=== PATIENT | male | born 1970 | race Two or more races ===

== ENCOUNTER 2021-08-19 13:26 | Emergency (ER) | payer MEDICARE, MEDICAID, SELFPAY ==
--- NOTE | ~2021-08-19 | CT_ITS ---
EXAMINATION: CT ABDOMEN AND PELVIS WITHOUT CONTRAST CLINICAL INFORMATION: Right flank pain COMPARISON: CT abdomen and pelvis 05/04/2017 TECHNIQUE: Multidetector volumetric imaging was performed from the superior aspect of the liver through the pubic symphysis. Sagittal and coronal reformatted images were obtained on the technologist's workstation. This CT examination was performed using dose optimization techniques as appropriate, variously including the following: *Automated exposure control *Adjustment of mA and/or kV according to patient size (this includes techniques or standardized protocols for targeted exams where dose is matched to indication/reason for exam; i.e. extremities or head) *Use of iterative reconstruction technique DLP: 303 mGy-cm FINDINGS: . LUNG BASES: The visualized lung bases are unremarkable. LIVER, GALLBLADDER, AND BILIARY TREE: The liver is normal in size, shape, and attenuation. No focal hepatic lesion or biliary ductal dilatation is present. The gallbladder is unremarkable with no evidence of radiopaque gallstones, gallbladder wall thickening, or obvious pericholecystic inflammatory changes. PANCREAS: Unremarkable. SPLEEN: Unremarkable. ADRENAL GLANDS: There is a 9 mm nodule left adrenal gland. The right adrenal gland is unremarkable. KIDNEYS AND URETERS: The kidneys are normal in size, shape, and attenuation. There are bilateral nonobstructive radiopaque renal calculi the largest calculi lower pole right kidney measures 5 mm without caliectasis. There are is four 2-3 mm mm radiopaque calculi upper pole left kidney and largest 4 mm radiopaque calculi. There is mild right hydronephrosis secondary to small obstructive radiopaque calculi right distal ureter measuring 5 mm on axial image 65/3 and 3 mm right distal ureter axial image 63/3. There is a solitary phlebolith in the right pelvis, unchanged to previous study BLADDER: Unremarkable. GASTROINTESTINAL TRACT: There is scattered stool in the colon without distention. The small bowel loops are normal caliber. There is no free air or free fluid. ABDOMINAL WALL: No significant hernia is appreciated. LYMPH NODES: Normal. VASCULAR: Unremarkable. PELVIC VISCERA: Unremarkable. OSSEOUS STRUCTURES: No lytic or sclerotic process seen. CT/CT abdomen pelvis wo con IMPRESSION: Bilateral nephrolithiasis. There is a right gfde-si-eimhelcy hydronephrosis followed to obstructive calculi right distal ureter new since 2017. Mild constipation.
[2021-08-19 13:35] VITALS: BP 136/92; PULSE 91; RESP 19; TEMP 36; O2SAT 96; BMI 20.1
[2021-08-19 15:00] LABS: Appearance Urine CLEAR; Glucose Urine UA NEG (NEG); Leukocyte Esterase Urine NEG (NEG); Nitrite Urine NEG (NEG); PH 6.5 (5.0-8.0); UACC Culture Trigger NO; Urine Blood 3+ (NEG); Urine Ketones NEG (NEG); Urine Protein NEG (NEG-TRACE)
[2021-08-19 15:02] LABS: Color Urine OTHER
[2021-08-19 15:07] LABS: RBC Urine TNTC /HPF (0); WBC Urine 0 /HPF (0-4)
--- NOTE | 2021-08-19 17:52 | ED.ABDPAIN ---
HPI - Abdominal Pain General Chief Complaint: Abdominal Pain Stated Complaint: KIDNEY STONE PAIN Time Seen by Provider: 08/19/21 17:34 Source: patient Mode of arrival: ambulatory Limitations: no limitations History of Present Illness HPI narrative: Patient comes emergency room complaining of right-sided flank pain. Patient states his symptoms started this morning, pain was constant, radiating towards the groin. Also complaining of gross hematuria. Patient states he has had kidney stones in the past, has required 2 surgeries. Patient states that at this time, he does not have any pain, no nausea. Patient denies fever chills, patient on any blood thinners Related Data Home Medications Medication Instructions Recorded Confirmed clonazepam 0.5 mg tablet 0.5 mg PO BEDTIME PRN 08/10/21 08/10/21 bupropion HCl 150 mg 24 hr tablet, 1 tab PO QAM 08/19/21 extended release hydroxyzine HCl 25 mg tablet 1 tab PO BID 08/19/21 Previous Rx's Medication Instructions Recorded ibuprofen 600 mg tablet 600 mg PO Q6H PRN #20 tab 08/19/21 ondansetron HCl 4 mg tablet 4 mg PO Q6H PRN #10 tab 08/19/21 (Zofran) prednisone 20 mg tablet 20 mg PO DAILY #4 tab 08/19/21 tamsulosin 0.4 mg capsule (Flomax) 0.4 mg PO DAILY #10 cap 08/19/21 Allergies Allergy/AdvReac Type Severity Reaction Status Date / Time No Known Allergies Allergy Unverified 08/10/21 15:26 [No Known Allergies*] Review of Systems Review of Systems Constitutional : No Weight loss, No Fever, No Chills, No Night Sweats, No Fatigue, No Malaise ENT/Mouth : No Hearing loss, No Ear Pain, No Nasal Congestion, No Sinus Pain, No Hoarseness, No sore throat, No Rhinorrhea, No Swallowing Difficulty Eyes: No Eye Pain, No Swelling, No Redness, No Foreign Body, No Discharge, No Vision Changes Cardiovascular : No Chest Pain, No SOB, No Dyspnea on Exertion, No Orthopnea, No Edema, No Palpitations Respiratory : No Cough, No Sputum, No Wheezing, No Smoke Exposure, No Dyspnea Gastrointestinal : No Nausea, No Vomiting, No Diarrhea, No Constipation, No abdominal Pain, No Hematochezia, No Melena Genitourinary :No Dysuria, No Urinary Frequency, complaining of Hematuria, No Urinary Incontinence, No Urgency, complaining of right-sided Flank Pain which now resolved, No Urinary Flow Changes, No Hesitancy Musculoskeletal : No joint pain, No Myalgias, No Joint Swelling Skin : No Skin Lesions, No rash Neuro : No Weakness, No Numbness, No Paresthesias, No Loss of Consciousness, No Dizziness, No Headache Psych : No Anxiety/Panic, No Depression, No SI/HI/AH/VH, No Social Issues, Heme/Lymph: No Bruising, No Bleeding,No Lymphadenopathy Endocrine : No Polyuria, No Polydipsia, No Temperature Intolerance Physical Exam Vital Signs: Vital Signs: Last Vital Signs Temp 96.8 F 08/19/21 13:35 Pulse 91 08/19/21 13:35 Resp 19 08/19/21 13:35 BP 136/92 H 08/19/21 13:35 Pulse Ox 96 08/19/21 13:35 Body Mass Index 20.1 Const: Other: Appearance: Alert. Oriented X3. No acute distress. Eyes: Pupils equal, round and reactive to light. ENT: Pharynx normal. Neck: Normal inspection. Neck supple. No lymph nodes noted. No crepitus CVS: Normal heart rate and rhythm. Pulses normal. Normal S1 and S2 Respiratory: No respiratory distress. Breath sounds normal. No Wheezing. No rales Abdomen: Soft and nontender. No rigidity. No distention. good BS x4 Skin: Skin warm and dry. Normal skin color. Normal skin turgor. Extremities: No lower extremity edema. No Lacerations. No Rash Neuro: Oriented X 3. No motor deficit. No sensory deficit. Moving all extermities. No slurred speech. Course Course Course Narrative: I discussed the CT scan with the patient, patient has a 5 mm ureteral stone. Patient at this time is asymptomatic, patient will follow-up with urology. MDM - Abdominal Pain Lab Data Result diagrams: 08/19/21 18:29 08/19/21 18:29 Labs: Lab Results 08/19/21 08/19/21 08/19/21 Range/Units 14:40 18:29 18:29 WBC 4.6 L (4.8-10.8) X10*3/uL RBC 5.28 (4.60-5.80) X10*6/uL Hgb 14.7 (14.0-18.0) g/dl Hct 44.1 (42-52) % MCV 83.5 (80-98) fL MCH 27.8 (27.0-33.0) pg MCHC 33.3 (31.0-36.0) g/dl RDW 13.1 (11.0-16.0) % Plt Count 112 L (160-400) X10*3/uL MPV 10.9 (9.4-12.4) fL Immature Gran % (Auto) 0.2 (0.0-0.4) % Neut % (Auto) 76.0 H (45-73) % Lymph % (Auto) 16.3 L (20-40) % [place] % (Auto) 6.1 (2-11) % Eos % (Auto) 0.7 (0-4) % Baso % (Auto) 0.7 (0-2) % Lymph # (Auto) 0.8 L (1.2-4.9) X10*3/uL [place] # (Auto) 0.3 (0.1-1.2) X10*3/uL Eos # (Auto) 0.0 (0.0-0.4) X10*3/uL Baso # (Auto) 0.0 (0.0-0.2) X10*3/uL Abs Immat Gran (auto) 0.01 (0.00-0.03) X10*3/uL Absolute Neuts (auto) 3.5 (2.0-8.3) X10*3/uL Absolute Nucleated RBC 0.000 (0.0-0.012) X10*3/uL Nucleated RBC % (auto) 0.0 (0.0-0.2) /100WBC Smear Tech's Comments VERIFIED Sodium 140 (135-145) mmol/L Potassium 4.6 (3.3-5.1) mmol/L Chloride 103 (96-108) mmol/L Carbon Dioxide 29 (22-29) mmol/L Anion Gap 13 (12-20) BUN 10 (9-16) mg/dL Creatinine 0.96 (0.5-1.4) mg/dL Estim Creat Clear Calc 75.4 Estimated GFR > 60 Random Glucose 88 (60-115) mg/dL Calcium 9.6 (8.4-10.2) mg/dL Total Bilirubin 0.8 (0.0-1.0) mg/dL Direct Bilirubin 0.3 (0.0-0.5) mg/dL AST 20 (5-37) U/L ALT 20 (0-40) U/L Alkaline Phosphatase 69 (39-117) U/L Total Protein 7.3 (6.5-8.0) g/dL Albumin 4.5 (3.5-5.0) g/dL Urine Color OTHER Urine Appearance CLEAR Urine pH 6.5 (5.0-8.0) Ur Specific [place] 1.010 (1.005-1.025) Urine Protein NEG (NEG-TRACE) MG/DL Urine Glucose (UA) NEG (NEG) MG/DL Urine Ketones NEG (NEG) MG/DL Urine Blood 3+ H (NEG) Urine Nitrite NEG (NEG) Ur Leukocyte Esterase NEG (NEG) Urine RBC TNTC H (0) /HPF Urine WBC 0 (0-4) /HPF Ur Squamous Epith Cells NONE /LPF Urine Bacteria NONE /LPF Imaging Data CT scan - abdomen: Radiologist's impression: FINDINGS: . LUNG BASES: The visualized lung bases are unremarkable.? LIVER, GALLBLADDER, AND BILIARY TREE: The liver is normal in size, shape, and attenuation. No focal hepatic lesion or biliary ductal dilatation is present. The gallbladder is unremarkable with no evidence of radiopaque gallstones, gallbladder wall thickening, or obvious pericholecystic inflammatory changes.? PANCREAS: Unremarkable.? SPLEEN: Unremarkable.? ADRENAL GLANDS: There is a 9 mm nodule left adrenal gland. The right adrenal gland is unremarkable.? KIDNEYS AND URETERS: The kidneys are normal in size, shape, and attenuation. There are bilateral nonobstructive radiopaque renal calculi the largest calculi lower pole right kidney measures 5 mm without caliectasis. There are is four 2-3 mm mm radiopaque calculi upper pole left kidney and largest 4 mm radiopaque calculi.? There is mild right hydronephrosis secondary to small obstructive radiopaque calculi right distal ureter measuring 5 mm on axial image 65/3 and 3 mm right distal ureter axial image 63/3. There is a solitary phlebolith in the right pelvis, unchanged to previous study BLADDER: Unremarkable.? GASTROINTESTINAL TRACT: There is scattered stool in the colon without distention. The small bowel loops are normal caliber. There is no free air or free fluid.? ABDOMINAL WALL: No significant hernia is appreciated.? LYMPH NODES: Normal. VASCULAR: Unremarkable. PELVIC VISCERA: Unremarkable.? OSSEOUS STRUCTURES: No lytic or sclerotic process seen.? CT/CT abdomen pelvis wo con IMPRESSION: Bilateral nephrolithiasis. ? There is a right [id number] hydronephrosis followed to obstructive calculi right distal ureter new since 2017. ? Mild constipation.? Discharge Plan Discharge Clinical Impression: Ureterolithiasis Patient Disposition: Home, Self-Care Instructions: Kidney Stones (ED) Additional Instructions: Please follow-up with your primary care physician tomorrow. If you have any worsening or new symptoms, please return to the emergency room or call 911 Prescriptions: New tamsulosin [Flomax] 0.4 mg capsule 0.4 mg PO DAILY Qty: 10 RF: 0 ondansetron HCl [Zofran] 4 mg tablet 4 mg PO Q6H PRN (Reason: nausea and vomiting) Qty: 10 RF: 0 ibuprofen 600 mg tablet 600 mg PO Q6H PRN (Reason: pain) Qty: 20 RF: 0 prednisone 20 mg tablet 20 mg PO DAILY Qty: 4 RF: 0 No Action hydroxyzine HCl 25 mg tablet 1 tab PO BID RF: 0 bupropion HCl 150 mg tablet extended release 24 hr 1 tab PO QAM RF: 0 clonazepam 0.5 mg tablet 0.5 mg PO BEDTIME PRN (Reason: Insomnia) RF: 0 PMFSH Past Medical History Medical History Hepatitis C Surgical History History of colonoscopy History of extraction of renal calculus History of hernia repair Family History Family History Mother Diabetes Father No problems noted. Other Mental health disorder Social History Social History Housing: Apartment Alcohol intake: never Patient Tobacco Use Status: Former Tobacco user Advance Directives: No Advance Directives Information Provided: No service: No Current occupational status: disabled
[2021-08-19 18:43] LABS: Imm Gran Abs Auto 0.01 X10*3/uL (0.00-0.03); Imm Gran Pct Auto 0.2 % (0.0-0.4); MANUAL DIFF FLAG SCAN; PLT CLUMP 1; Red Cell Distribution Width 13.1 % (11.0-16.0); SCAN SMEAR FLAG 1
[2021-08-19 18:45] LABS: Basophils Percent Auto 0.7 % (0-2); Eosinophils Percent Auto 0.7 % (0-4); Hematocrit 44.1 % (42-52); Hemoglobin 14.7 g/dl (14.0-18.0); Lymphocytes Absolute Auto 0.8 X10*3/uL (1.2-4.9); Lymphocytes Percent Auto 16.3 % (20-40); Mean Corpuscular HGB Conc 33.3 g/dl (31.0-36.0); Mean Corpuscular Hemoglobin 27.8 pg (27.0-33.0); Mean Corpuscular Volume 83.5 fL (80-98); Mean Platelet Volume 10.9 fL (9.4-12.4); Monocytes Absolute Auto 0.3 X10*3/uL (0.1-1.2); Monocytes Percent Auto 6.1 % (2-11); Neutrophils Absolute Auto 3.5 X10*3/uL (2.0-8.3); Platelet Count 112 X10*3/uL (160-400); Red Blood Count 5.28 X10*6/uL (4.60-5.80); White Blood Count 4.6 X10*3/uL (4.8-10.8)
[2021-08-19 18:59] LABS: Alanine Aminotransferase 20 U/L (0-40); Albumin Level 4.5 g/dL (3.5-5.0); Alkaline Phosphatase 69 U/L (39-117); Anion Gap 13 (12-20); Aspartate Amino Transferase 20 U/L (5-37); Bilirubin Direct 0.3 mg/dL (0.0-0.5); Bilirubin Total 0.8 mg/dL (0.0-1.0); Blood Urea Nitrogen 10 mg/dL (9-16); Calcium 9.6 mg/dL (8.4-10.2); Carbon Dioxide 29 mmol/L (22-29); Chloride 103 mmol/L (96-108); Creatinine Clr Calc Pharmacy 75.4; Estimated Glomerular Filt Rate > 60; Glucose Random 88 mg/dL (60-115); Potassium 4.6 mmol/L (3.3-5.1); Sodium 140 mmol/L (135-145); Total Protein 7.3 g/dL (6.5-8.0)
[2021-08-19 19:01] LABS: SLIDE REVIEW VERIFIED
[2021-08-19] MEDS: predniSONE 20 MG TABLET PO (20:54)
[2021-08-19] MEDS: Tamsulosin HCL 0.4 MG CAPSULE PO (20:54)
== END 2021-08-19 21:00 | disposition home or self-care (01) ==
PROVIDERS: Emergency Provider Emergency Medicine; PCP Internal Medicine
DX: N20.1 Calculus of ureter (principal); Z79.899 Other long term (current) drug therapy
CPT/HCPCS: 36415; 74176; 80048; 80076; 81001; 81003; 85025; 99284

== ENCOUNTER 2021-09-01 11:56 | Outpatient (REF) | payer MEDICARE, MEDICAID, SELFPAY ==
[2021-09-01 12:57] LABS: Alanine Aminotransferase 14 U/L (0-40); Albumin Level 4.4 g/dL (3.5-5.0); Alkaline Phosphatase 69 U/L (39-117); Anion Gap 12 (12-20); Aspartate Amino Transferase 17 U/L (5-37); Bilirubin Total 0.8 mg/dL (0.0-1.0); Blood Urea Nitrogen 13 mg/dL (9-16); Calcium 9.2 mg/dL (8.4-10.2); Carbon Dioxide 29 mmol/L (22-29); Chloride 103 mmol/L (96-108); Cholesterol 181 mg/dL; Estimated Glomerular Filt Rate > 60; Glucose Fasting 83 mg/dL (60-99); HDL Cholesterol 37 mg/dL; LDL Cholesterol Calculated 122 mg/dl; Potassium 4.5 mmol/L (3.3-5.1); Sodium 139 mmol/L (135-145); Triglycerides 114 mg/dL
[2021-09-01 13:22] LABS: Prostate Specific Antigen 0.33 ng/mL (<0.05-4.0)
== END 2021-09-01 11:57 | disposition home or self-care (01) ==
LOC: HO.LAB 11:56
PROVIDERS: PCP Internal Medicine; Visit Provider Nurse Practitioner Family
DX: Z12.5 Encounter for screening for malignant neoplasm of prostate (principal); Z13.1 Encounter for screening for diabetes mellitus; Z13.220 Encounter for screening for lipoid disorders
CPT/HCPCS: 36415; 80053; 80061; 84153

== ENCOUNTER 2021-12-13 16:17 | Outpatient (REF) | payer MEDICARE, MEDICAID, SELFPAY ==
--- NOTE | ~2021-12-13 | US_ITS ---
EXAMINATION: US RETROPERITONEAL LIMITED (RENAL ONLY) CLINICAL INFORMATION: Calculus of kidney. COMPARISON: CT abdomen and pelvis without contrast 08/19/2021. Renal ultrasound 01/30/2020 and 11/18/2019. XR abdomen KUB 01/15/2020 and 05/03/2017. TECHNIQUE: Real-time imaging of the kidneys. FINDINGS: RIGHT KIDNEY: 10.5 x 5.1 x 4.3 cm (SAG x AP x TRV). The kidney is normal in size, contour, and echogenicity. Renal cortical thickness is normal. There is a 3 mm stone in the midpole. No focal parenchymal lesions or hydronephrosis. LEFT KIDNEY: 10.0 x 4.7 x 3.9 cm (SAG x AP x TRV). The kidney is normal in size, contour, and echogenicity. Renal cortical thickness is normal. There are multiple at least 5 left renal stones. The largest measure 5 mm in the mid and lower pole. No focal parenchymal lesions or hydronephrosis. US/US renal BI IMPRESSION: Bilateral renal stones, left greater than right.
== END 2021-12-13 16:18 | disposition home or self-care (01) ==
LOC: HO.US 16:17
PROVIDERS: PCP Internal Medicine; Visit Provider Internal Medicine
DX: N20.0 Calculus of kidney (principal)
CPT/HCPCS: 76775

== ENCOUNTER 2022-05-10 15:04 | Outpatient (REF) | payer MEDICARE, MEDICAID, SELFPAY ==
[2022-05-10 16:33] LABS: Calcium 9.1 mg/dL (8.4-10.2); Phosphorus 3.4 mg/dL (2.7-4.5); Uric Acid 6.1 mg/dL (3.4-7.0)
[2022-05-11 12:36] LABS: Calcium (PTHI) 9.6 mg/dL (8.6-10.3); PTHI 55 pg/mL (16-77)
== END 2022-05-10 15:05 | disposition home or self-care (01) ==
LOC: HO.LAB 15:04
PROVIDERS: PCP Internal Medicine; Visit Provider Urology
DX: N20.0 Calculus of kidney (principal); Z87.442 Personal history of urinary calculi
CPT/HCPCS: 36415; 82310; 83735; 83970; 84100; 84550; 99212

== ENCOUNTER → 2022-09-09 13:18 | Outpatient (BNVA) | payer MEDICARE, MEDICAID, SELFPAY | PROVIDERS: PCP Internal Medicine; Visit Provider Urology | DX: N20.0 Calculus of kidney (principal) | CPT/HCPCS: Q3014 ==

== ENCOUNTER 2023-01-02 10:58 | Outpatient (REF) | payer MEDICARE, MEDICAID, SELFPAY ==
[2023-01-02 11:09] LABS: MANUAL DIFF FLAG NO
[2023-01-02 12:07] LABS: Basophils Absolute Auto 0.1 X10*3/uL (0.0-0.2); Basophils Percent Auto 1.4 % (0-2); Eosinophils Absolute Auto 0.1 X10*3/uL (0.0-0.4); Eosinophils Percent Auto 1.8 % (0-4); Hematocrit 46.1 % (42.0-52.0); Hemoglobin 14.9 g/dl (14.0-18.0); Imm Gran Abs Auto 0.01 X10*3/uL (0.00-0.03); Imm Gran Pct Auto 0.2 % (0.0-0.4); Lymphocytes Absolute Auto 0.8 X10*3/uL (1.2-4.9); Lymphocytes Percent Auto 19.4 % (20-40); Mean Corpuscular HGB Conc 32.3 g/dl (31.0-36.0); Mean Corpuscular Hemoglobin 27.1 pg (27.0-33.0); Mean Platelet Volume 11.7 fL (9.4-12.4); Monocytes Absolute Auto 0.4 X10*3/uL (0.1-1.2); Neutrophils Percent Auto 68.2 % (45-73); Platelet Count 150 X10*3/uL (160-400); Red Blood Count 5.49 X10*6/uL (4.60-5.80); Red Cell Distribution Width 12.6 % (11.0-16.0); White Blood Count 4.3 X10*3/uL (4.8-10.8)
[2023-01-02 12:19] LABS: Appearance Urine Clear; Color Urine Yellow; Glucose Urine UA Negative (Negative); Leukocyte Esterase Urine Negative (Negative); Nitrite Urine Negative (Negative); PH 5.5 (5.0-9.0); Urine Blood Negative (Negative); Urine Ketones Negative (Negative); Urine Protein Negative (Neg-Trace)
[2023-01-02 12:47] LABS: Alanine Aminotransferase 15 U/L (0-40); Albumin Level 4.2 g/dL (3.5-5.0); Alkaline Phosphatase 65 U/L (39-117); Anion Gap 10 (12-20); Aspartate Amino Transferase 18 U/L (5-37); Bilirubin Total 1.1 mg/dL (0.0-1.0); Blood Urea Nitrogen 15 mg/dL (9-16); Calcium 9.2 mg/dL (8.4-10.2); Carbon Dioxide 30 mmol/L (22-29); Chloride 105 mmol/L (96-108); Cholesterol 161 mg/dL; Estimated Glomerular Filt Rate > 60; Glucose Fasting 80 mg/dL (60-99); HDL Cholesterol 36 mg/dL; LDL Cholesterol Calculated 110 mg/dl; Potassium 4.2 mmol/L (3.3-5.1); Sodium 141 mmol/L (135-145); Total Protein 6.7 g/dL (6.5-8.0); Triglycerides 79 mg/dL
[2023-01-02 13:03] LABS: Prostate Specific Antigen Scr 1.85 ng/mL (<0.05-4.0); TSH reflex Free T4 3.63 uIU/mL (0.32-4.0); Vitamin D 25-OH Total 31.8 ng/mL (>30)
== END 2023-01-02 10:59 | disposition home or self-care (01) ==
LOC: HO.LAB 10:58
PROVIDERS: PCP Internal Medicine; Visit Provider Internal Medicine
DX: Z00.00 Encounter for general adult medical examination without abnormal findings (principal); E55.9 Vitamin D deficiency, unspecified; R30.0 Dysuria; E78.00 Pure hypercholesterolemia, unspecified; Z12.5 Encounter for screening for malignant neoplasm of prostate
CPT/HCPCS: 36415; 80053; 80061; 81003; 82306; 84153; 84443; 85025

== ENCOUNTER 2023-02-07 15:16 | Outpatient (REF) | payer MEDICARE, MEDICAID, SELFPAY ==
[2023-02-07 17:05] LABS: Prothrombin Time 11.9 SEC (10.0-13.1)
[2023-02-08 04:53] LABS: Hepatitis A Antibody IgG REACTIVE (Nonreactive)
[2023-02-08 05:11] LABS: HBS Num1 1.89 mIU/mL (0-7.99); HBc Num1 6.82 S/CO (0.00-0.79); HBsAGNum1 0.34 S/CO (0.00-0.99); Hepatitis B Surface Antigen Negative (Negative); ~Hepatitis B Surface Antibody NONREACTIVE (Nonreactive)
[2023-02-08 05:59] LABS: HBc Num2 6.63 S/CO; HBc Num3 6.44 S/CO; Hepatitis B Core Antibody Reactive (Nonreactive)
[2023-02-09 17:18] LABS: Hepatitis B Core Antibody IgM NON-REACTIVE (NON-REACTIVE)
[2023-02-10 14:58] LABS: HCV Log PCR <1.18 NOT DETECTED Log IU/mL (NOT DETECTED); HepC Viral Load <15 NOT DETECTED IU/mL (NOT DETECTED)
== END 2023-02-07 15:17 | disposition home or self-care (01) ==
LOC: HO.LAB 15:16
PROVIDERS: PCP Internal Medicine; Referring Provider Internal Medicine; Visit Provider Internal Medicine
DX: Z01.818 Encounter for other preprocedural examination (principal); D69.6 Thrombocytopenia, unspecified; Z86.19 Personal history of other infectious and parasitic diseases; Z11.59 Encounter for screening for other viral diseases; Z72.89 Other problems related to lifestyle
CPT/HCPCS: 36415; 85610; 86704; 86705; 86706; 86708; 87340; 87522; 99202

== ENCOUNTER 2023-03-06 12:37 | Outpatient (REF) | payer MEDICARE, MEDICAID, SELFPAY ==
--- NOTE | ~2023-03-06 | US_ITS ---
EXAMINATION: US RETROPERITONEAL LIMITED (RENAL ONLY) CLINICAL INFORMATION: Calculus of kidney. COMPARISON: Bilateral renal ultrasound dated 12/13/2021. CT abdomen and pelvis without contrast dated 08/19/2021. Renals only ultrasound dated 01/30/2020. KUB dated 01/15/2020 and 05/03/2017. MR abdomen without and with contrast dated 09/04/2014. TECHNIQUE: Real-time imaging of the kidneys. FINDINGS: RIGHT KIDNEY: 10.4 x 5.7 x 4.8 cm (SAG x AP x TRV). The kidney is normal in size, contour, and echogenicity. Renal cortical thickness is normal. No focal parenchymal lesions or hydronephrosis. There is an echogenic stone lower pole measuring 0.5 x 0.6 x 0.6 cm with mild pelvic fullness. LEFT KIDNEY: 10.3 x 5.0 x 4.1 cm (SAG x AP x TRV). The kidney is normal in size, contour, and echogenicity. Renal cortical thickness is normal. No focal parenchymal lesions or hydronephrosis. There are echogenic stones in midpole measuring 0.4 x 0.4 x 0.3 cm and 0.3 x 0.4 x 0.4 cm. US/US renal BI IMPRESSION: Bilateral nonobstructive echogenic renal calculi. These are stable compared to previous ultrasound 12/13/2021. Mild pelvic fullness right kidney.
== END 2023-03-06 12:38 | disposition home or self-care (01) ==
LOC: HO.US 12:37
PROVIDERS: PCP Internal Medicine; Visit Provider Urology
DX: N20.0 Calculus of kidney (principal)
CPT/HCPCS: 76775

== ENCOUNTER → 2023-03-22 13:46 | Outpatient (BNVA) | payer MEDICARE, MEDICAID, SELFPAY | PROVIDERS: PCP Internal Medicine; Visit Provider Urology | DX: N20.0 Calculus of kidney (principal) | CPT/HCPCS: Q3014 ==

== ENCOUNTER 2023-03-23 09:14 | Outpatient (REF) | payer MEDICARE, MEDICAID, SELFPAY ==
--- NOTE | ~2023-03-23 | US_ITS ---
EXAMINATION: US COMPLETE ABDOMEN WITH LIVER ELASTOGRAPHY CLINICAL INFORMATION: Thrombocytopenia COMPARISON: None available. TECHNIQUE: Real-time imaging of the abdominal viscera. Noninvasive ultrasound liver fibrosis assessment is performed using Misael ElastPQ point quantification shear wave elastography (2D-SWE) with a C5-2 MHz transducer. Multiple elastography samples are obtained. FINDINGS: PANCREAS: Normal. The visualized pancreatic head and body are normal in appearance. The remainder of the pancreas is obscured from visualization by the overlying bowel gas. ABDOMINAL AORTA: The proximal, middle, and distal aortic segments are normal in caliber. INFERIOR VENA CAVA: Visualized portions are normal. LIVER: The liver demonstrates normal size, contour and echogenicity. No focal lesion or intrahepatic biliary duct dilatation. The right lobe measures 14.4 cm in length. The left lobe measures 8.5 cm in length. Portal flow is 8.5 hepatopedal Shear wave liver elastography median stiffness is 1.9 m/s (reference: normal median stiffness is 1.3 m/s or less). IQR/median stiffness to assess sampling precision is 0.15 (reference: good quality data set is IQR/median stiffness of 0.15 or less). GALLBLADDER: Gallbladder wall thickness is 0.2 cm The gallbladder is physiologically distended without evidence of stones, sludge, polyps, wall thickening or pericholecystic fluid. COMMON BILE DUCT: Normal in caliber measuring 0.3 cm in diameter. RIGHT KIDNEY: 9 shadowing linear area likely small calcification in midpole. Stone lower pole measuring 0.6 x 0.4 x 0.5 cm. No hydronephrosis. No renal calculi or focal parenchymal lesions. The kidney measures 9.7 cm in maximum dimension. LEFT KIDNEY: There are 3 echogenic stones. The largest in midpole measures 0.5 x 0.4 x 0.3 cm. No hydronephrosis. No renal calculi or focal parenchymal lesions. The kidney measures 10.0 cm in maximum dimension. SPLEEN: The spleen measures 13.2 cm in maximum dimension. FREE FLUID: None. US/US abdomen comp w elastography IMPRESSION: 1. Bilateral nonobstructive echogenic renal calculi. There is no hydronephrosis. 2. Liver elastography: Median liver stiffness measures 1.9 cm corresponding to cACLD suggestive. REFERENCE: Society of Radiologists in Ultrasound Liver Stiffness Thresholds (2019): LIVER STIFFNESS THRESHOLDS: *Liver Stiffness equal or less than 1.3 m/s: High probability of being normal. *Liver Stiffness less than 1.7 m/s: In the absence of other known clinical signs, rules out compensated advanced chronic liver disease. *Liver Stiffness 1.7-2.1 m/s: Suggestive of compensated advanced chronic liver disease but need further test for confirmation. *Liver Stiffness over 2.1 m/s: Rules in compensated advanced chronic liver disease. *Liver Stiffness over 2.4 m/s: Suggestive of clinically significant portal hypertension. QUALITY OF DATA SET: *IQR/Median value equal or less than 0.15 implies a quality data set. *IQR/Median value over 0.15 implies a poor quality data set. SIGNIFICANT CHANGE FROM PRIOR EXAM: Significant change if liver stiffness measurement is 10% or greater from prior exam. OTHER CONSIDERATIONS: The stage of liver fibrosis may be overestimated in the setting of acute hepatitis, liver inflammation, elevated liver function tests, hepatic vascular congestion, obstructive cholestasis, non-fasting state, and infiltrative diseases such as amyloidosis and lymphoma. In some patients with NAFLD, the liver stiffness thresholds for compensated advanced chronic liver disease may be lower. In causes other than viral hepatitis and NAFLD, liver stiffness thresholds are not well established.
== END 2023-03-23 09:15 | disposition home or self-care (01) ==
LOC: HO.US 09:14
PROVIDERS: PCP Internal Medicine; Visit Provider Internal Medicine
DX: D69.6 Thrombocytopenia, unspecified (principal); Z86.19 Personal history of other infectious and parasitic diseases
CPT/HCPCS: 76705; 76981

== ENCOUNTER 2023-04-27 13:18 | Day surgery (SDC) | payer MEDICARE, MEDICAID, SELFPAY ==
[2023-04-24 15:06] VITALS: BMI 19.6
--- NOTE | 2023-04-25 14:53 | HO.ANESPROP2 ---
Documented by User: Lor Simmons NP 04/25/23 14:54 HPI - Anesthesia Eval Consult details Narrative: 52yo M for Upper Endoscopy and Colonoscopy FOR[facility] Active Problems Active Problems: All Active Problems (Updated 02/07/23 @ 15:49 by Elizabeth Sosa MD) Thrombocytopenia (Acute) Colon cancer screening (Acute) Annual physical exam (Acute) Anxiety (Acute) History of gastritis (Acute) History of hepatitis C (Acute) Irritable bowel syndrome (IBS) (Acute) Renal calculi (Acute) Adult general medical exam (Acute) Screening for diabetes mellitus (Acute) Screening for hyperlipidemia (Acute) Screening for prostate cancer (Acute) Past Medical History Medical History (Updated 04/27/23 @ 14:12 by Brittni Hunt RN) Anxiety CVA (cerebral vascular accident) History of gastritis History of hepatitis C Irritable bowel syndrome (IBS) Family History Family History Mother Diabetes Father No problems noted. Other Mental health disorder Surgical History Surgical History History of colonoscopy History of extraction of renal calculus History of hernia repair Social History Social History Housing: Apartment Alcohol intake: former Patient Tobacco Use Status: Former Tobacco user Second Hand Smoke Exposure: Yes Use of substances other than those prescribed or required for medical reasons: Yes Substance Use Frequency: Occasionally Advance Directives: No Advance Directives Information Provided: Yes service: No Current occupational status: disabled Cognitive needs: No Hearing needs: No Vision needs: Yes (reading glasses) Meds Allergies Allergy/AdvReac Type Severity Reaction Status Date / Time No Known Allergies Allergy Verified 02/07/23 15:28 [No Known Allergies*] Home Medications Medication Instructions Recorded Confirmed Last Taken Type clonazepam 0.5 mg tablet 0.5 mg PO BEDTIME PRN Insomnia 08/10/21 03/22/23 Unknown History Exam Exam Date and Time: April 25, 2023 1453 Height,Weight and Vital Signs: Height 5 ft 6 in Weight 54.998 kg Pertinent Lab Results Pertinent Lab Results: Laboratory Tests 01/02/23 01/02/23 11:08 11:08 WBC 4.3 L Hgb 14.9 Hct 46.1 Plt Count 150 L Sodium 141 Potassium 4.2 Chloride 105 Carbon Dioxide 30 H BUN 15 Creatinine 1.07 Assessment and Plan Assessment Anesthesia Assessment: Chart Reviewed Documented by User: Gage Lieberman MD 04/27/23 14:40 [facility] Past Medical History Medical History (Updated 04/27/23 @ 14:12 by Brittni Hunt RN) Anxiety CVA (cerebral vascular accident) History of gastritis History of hepatitis C Irritable bowel syndrome (IBS) Family History Family History Mother Diabetes Father No problems noted. Other Mental health disorder Family history of problems with anesthesia: No Surgical History Surgical History History of colonoscopy History of extraction of renal calculus History of hernia repair History of Problems with Anesthesia: No Social History Social History Housing: Apartment Alcohol intake: former Patient Tobacco Use Status: Former Tobacco user Second Hand Smoke Exposure: Yes Use of substances other than those prescribed or required for medical reasons: Yes Substance Use Frequency: Occasionally Advance Directives: No Advance Directives Information Provided: Yes service: No Current occupational status: disabled Cognitive needs: No Hearing needs: No Vision needs: Yes (reading glasses) Meds Allergies Allergy/AdvReac Type Severity Reaction Status Date / Time No Known Allergies Allergy Verified 02/07/23 15:28 [No Known Allergies*] Home Medications Medication Instructions Recorded Confirmed Last Taken Type clonazepam 0.5 mg tablet 0.5 mg PO BEDTIME PRN Insomnia 08/10/21 03/22/23 Unknown History Exam Airway Mallampati Class: II TM Dist: >3cm Neck ROM: Full Partial: Upper and Lower Loose/Missing/Broken Teeth: Yes Assessment and Plan Assessment Anesthesia Assessment: Anesthesia Plan Discussed Final Anesthetic Review Family History of Problems with Anesthesia: No History of Problems with Anesthesia: No NPO: Yes ASA Class: III Final Preanesthetic Review: No Changes in Pt Med Stat, Meds/Allgs Chart Reviewed, Consent Obtained/Reviewed and Anes Risks/Benef Reviewed Patient Risk: Intermediate Procedure Risk: Low Anesthetic Plan Anesthetic Plan: MAC: Disposition: Standard PACU
[2023-04-27] MEDS: Lactated Ringers 1,000 ML 100 ML IVCONT (14:15)
[2023-04-27 14:16] VITALS: BP 127/79; PULSE 79; RESP 16; TEMP 36.3; O2SAT 99
--- NOTE | 2023-04-27 14:59 | PC.NURSE ---
Dr Sosa aware that current H+P is out of date and that section B of preop MD assessment is needed
--- NOTE | 2023-04-27 15:40 | MHC.SHP ---
Pre-Procedural Eval Section A Date of Service: 04/27/23 Section B Chief Complaint: Screening, chronic HCV r/o varices Details of Present Illness: PMH: Anxiety History of gastritis History of hepatitis C Irritable bowel syndrome (IBS) Present Medications: see Short Stay Collaborative assessment History of Previous Operations: No relevant previous surgery Allergies: Allergies Allergy/AdvReac Type Severity Reaction Status Date / Time No Known Allergies Allergy Verified 02/07/23 15:28 [No Known Allergies*] Review of Systems Review of Systems Comment: Ten point ROS negative Exam Exam Comment: Gen appear: No acute distress HEENT: no icterus Chest: No overt resp distress Abd: soft, nontender, nondistended Psych: Stable affect, answering questions appropriately Neuro: A/Ox3 noted to move all extremities spontaneously Ext: no peripheral edema Plan Diagnosis/Plan: Unchanged I have reviewed the history and physical and performed a pertinent physical examination on my patient. No changes have occurred unless specified. Time Spent With Patient Time: Total time managing care of this patient today ____ minutes.
--- NOTE | 2023-04-27 16:25 | P.OP_ITS ---
Operative Note Operative Note Date of Service: 04/27/23 Narrative: Procedure:?Esophagogastroduodenoscopy and colonoscopy Endoscopist:?Elizabeth Sosa MD Indication:?Variceal screening, CRC screening Anesthesia Provider:?Sonia Duckworth Anesthesia Type:?MAC Instrument:?Olympus GIF-H190, PCF-190L EGD Procedure:?? The procedure, indications, preparation and potential complications were reviewed with the patient, who indicated understanding and gave written informed consent to proceed. The endoscope was introduced through the mouth, and advanced to the second part of duodenum. The mucosa was carefully examined on slow withdrawal of the endoscope. The patient tolerated the procedure well. There were no immediate complications.? EGD Findings:? * Esophagus:? Normal mucosa noted in the entire esophagus. No varices were noted. The Z line was at 39 cm.? * Stomach:? Erythema and edema was noted in the antrum associated with a small healing ulcer. Cold forceps biopsies were taken from the edge of the healing ulcer. Random cold forceps biopsies were also taken to rule out H pylori. * Duodenum:? Normal mucosa was noted to the 2nd portion the duodenum. Colonoscopy Procedure:? The patient was then turned for the colonoscopy. A digital rectal exam was performed which was normal.? A distal attachment cap was affixed to the tip of the scope and the colonoscope was then inserted through the anus and advanced through the colon to the cecum at 75 cm, and terminal ileum.? Appendiceal orifice and ileocecal valve were identified.? Mucosa was carefully examined under high definition white light as the instrument was slowly withdrawn in a retrograde panoramic fashion. Retroflexion was performed in rectum. The procedure was not difficult. There were no immediate obvious complications. The quality of the prep was BBPS: 3+2+3 = adequate Withdrawal time 12 minutes. Limitations: No limitations Findings: Mucosa: Normal mucosa to cecum and terminal ileum. Protruding lesions: * Medium internal hemorrhoids without stigmata of recent bleeding. Impression: 1. Normal esophagus 2. Healing antral ulcer (biopsy) 3. Normal duodenum 4. Internal hemorrhoids Recommendations:?? * Follow biopsy results, office will call or send a letter within 7-10 days.? * Repeat colonoscopy in 10 years for asymptomatic colon cancer screening * Avoid NSAIDs and smoking.
[2023-04-27 16:39] VITALS: BP 108/63; PULSE 70; RESP 16; TEMP 36.1; O2SAT 100
[2023-04-27 16:54] VITALS: BP 128/98; PULSE 75; RESP 16; TEMP 36.7; O2SAT 98
== END 2023-04-27 16:57 | disposition home or self-care (01) ==
PROVIDERS: PCP Internal Medicine; Visit Provider Internal Medicine
PROC: (CPT 43239; principal; 2023-04-27 15:20)
DX: Z12.11 Encounter for screening for malignant neoplasm of colon (principal); K64.8 Other hemorrhoids; K25.9 Gastric ulcer, unspecified as acute or chronic, without hemorrhage or perforation; D69.6 Thrombocytopenia, unspecified; Z86.19 Personal history of other infectious and parasitic diseases
CPT/HCPCS: 43239; G0121; 88305; 88342; J2250; J3010

== ENCOUNTER 2023-05-08 13:01 | Outpatient (AMB) | payer MEDICARE, MEDICAID, SELFPAY ==
--- NOTE | 2023-05-08 13:03 | MHC.OFFVIS ---
Intake Vital Signs 05/08/23 13:06 Height 5 ft 6 in Weight 116 lb 13.52 oz BMI 18.9 BP 130/77 Blood Pressure Location Lt brachial Position Sitting Pulse 77 Intake Visit Reasons: S/p egd/colon Intake Note: Paolo is here for results of his procedures. CC: Loss of appetite. He eats because he has too. He will go all day without being hungry. 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 Pt currently has no gastrointestinal complaints to include abd pain, N,V,D or blood in stool. No fam hx of CRC. Last colo: 2017 (Dr Lord) diagnostic colo for diarrhea. Normal including random bx from T.I and colon. On lab review, pt noted to have thrombocytopenia. No known hx of cirrhosis. Last EGD 2017 did not show any portal hypertension. Pt does not report any relapse with substance use. 04/27/23: EGD/colo 1. Normal esophagus 2. Healing antral ulcer (biopsy) 3. Normal duodenum 4. Internal hemorrhoids Path: (A and B): Immunostains for H. pylori are negative with appropriate control. Diagnosis A.? Gastric antrum, biopsy:? Mild reactive gastropathy with ectatic vessels and focal minimal chronic inactive inflammation; negative for intestinal metaplasia and dysplasia (see comment).? B.? Stomach, random, biopsy:? Gastric antral and body mucosa with ectatic vessels and mild reactive changes; negative for intestinal metaplasia and dysplasia (see comment).? 05/08/23: Reports decreased appetite without obv weight loss, otherwise no gastrointestinal complaints. EGD and colo reviewed with the pt. No evidence of portal HTN on EGD which the pt was relieved to hear. [facility] Medical History Anxiety CVA (cerebral vascular accident) History of gastritis History of hepatitis C Irritable bowel syndrome (IBS) Surgical History History of colonoscopy History of esophagogastroduodenoscopy (EGD) History of extraction of renal calculus History of hernia repair Family History Mother Diabetes Father No problems noted. Other Mental health disorder Social History Housing: Apartment Alcohol intake: former Patient Tobacco Use Status: Former Tobacco user Second Hand Smoke Exposure: Yes service: No Current occupational status: disabled Cognitive needs: No Hearing needs: No Vision needs: Yes (reading glasses) Review of Systems Const All systems reviewed & are unremarkable except as noted in HPI and below Physical Exam Vital Signs: Last Vital Signs Pulse 77 05/08/23 13:06 BP 130/77 05/08/23 13:06 BMI result Body Mass Index 18.9 Gen appear: NAD, well nourished HEENT: no icterus, no cervical lymphadenopathy Chest: clear to auscultation CVS: Regular S1/S2 Abd: soft, nontender, nondistended Ext: no peripheral edema Neuro: A/Ox3, noted to move all extremities spontaneously Assessment & Plan Assessment & Plan (1) Colon cancer screening: Code(s): Z12.11 - Encounter for screening for malignant neoplasm of colon (2) History of hepatitis C: Comment: S/P Tx Code(s): Z86.19 - Personal history of other infectious and parasitic diseases (3) Thrombocytopenia: Code(s): D69.6 - Thrombocytopenia, unspecified (4) Liver fibrosis: Code(s): K74.00 - Hepatic fibrosis, unspecified Plan 1. Likely has advanced fibrosis vs early cirrhosis. No evidence of portal HTN on EGD 03/2023. Recommendations: - Repeat EGD in 3 years since HCV is treated and no other liver injury such as etOH or metabolic factors. Reminder set. - Repeat US in Aug 2023 for HCC screening. Reminder set. 2. CRC screening: No polyps on most recent colo. Repeat colonsocopy recommended in 2032 i.e 10 years. Follow up PRN. Coding Level of Care Code Est Pt Level 4 (48105) Diagnoses Colon cancer screening Z12.11 History of hepatitis C Z86.19 Thrombocytopenia D69.6 Liver fibrosis K74.00
[2023-05-08 13:06] VITALS: BP 130/77; PULSE 77; BMI 18.9
== END 2023-05-08 13:36 | disposition home or self-care (01) ==
PROVIDERS: PCP Internal Medicine; Visit Provider Internal Medicine
DX: Z12.11 Encounter for screening for malignant neoplasm of colon (principal); Z86.19 Personal history of other infectious and parasitic diseases; D69.6 Thrombocytopenia, unspecified; K74.00 Hepatic fibrosis, unspecified
CPT/HCPCS: 99214

== ENCOUNTER → 2023-05-08 13:01 | Outpatient (BNVA) | payer MEDICARE, MEDICAID, SELFPAY | PROVIDERS: PCP Internal Medicine; Visit Provider Internal Medicine | DX: Z12.11 Encounter for screening for malignant neoplasm of colon (principal); K74.00 Hepatic fibrosis, unspecified; D69.6 Thrombocytopenia, unspecified; Z86.19 Personal history of other infectious and parasitic diseases | CPT/HCPCS: 99212 ==

== ENCOUNTER 2023-10-05 08:19 | Outpatient (REF) | payer MEDICARE, MEDICAID, SELFPAY ==
--- NOTE | ~2023-10-05 | US_ITS ---
EXAMINATION: US ABDOMEN COMPLETE CLINICAL INFORMATION: Hepatic fibrosis, unspecified. COMPARISON: Ultrasound abdomen complete 03/23/2023. Renal ultrasound 03/06/2023. CT abdomen and pelvis 08/19/2021. X-ray KUB 01/15/2020 and 05/03/2017. TECHNIQUE: Real-time imaging of the abdominal viscera. FINDINGS: PANCREAS: Normal. ABDOMINAL AORTA: The proximal, mid, and distal segments are normal in caliber. INFERIOR VENA CAVA: Visualized portions are normal. LIVER: The liver is normal in size with suggestion of a nodular border and increased echogenicity. No focal hepatic lesion. There is no intrahepatic biliary duct dilatation seen. GALLBLADDER: Normal. The gallbladder is physiologically distended without evidence of stones, sludge, polyps, wall thickening or pericholecystic fluid. COMMON BILE DUCT: Normal in caliber measuring 0.27 cm in diameter. RIGHT KIDNEY: There is a mid renal 3 mm echogenic focus seen consistent with a nonobstructing calculus. No hydronephrosis or focal parenchymal lesions. The kidney measures 9.7 cm in maximum dimension. LEFT KIDNEY: There is a mid renal 7 mm echogenic focus consistent with a nonobstructing calculus as well as a 3 mm echogenic focus at the lower pole. No hydronephrosis or focal parenchymal lesions. The kidney measures 9.2 cm in maximum dimension. SPLEEN: The spleen is enlarged measuring 13.5 cm in maximum dimension. FREE FLUID: None. US/US abdomen complete IMPRESSION: 1. The liver has a nodular border and increased echogenicity suggesting the possibility of cirrhosis. 2. Splenomegaly. 3. Bilateral nonobstructing renal calculi.
== END 2023-10-05 08:20 | disposition home or self-care (01) ==
LOC: HO.US 08:19
PROVIDERS: Visit Provider Internal Medicine
DX: K74.00 Hepatic fibrosis, unspecified (principal)
CPT/HCPCS: 76700

== ENCOUNTER 2024-03-18 13:55 | Outpatient (REF) | payer MEDICARE, MEDICAID, SELFPAY ==
--- NOTE | ~2024-03-18 | US_ITS ---
EXAMINATION: US RETROPERITONEAL LIMITED (RENAL ONLY) CLINICAL INFORMATION: Calculus of kidney. COMPARISON: Ultrasound abdomen 10/05/2023 and 03/23/2023. CT abdomen and pelvis 08/19/2021. X-ray KUB 05/03/2017 and 12/18/2013. TECHNIQUE: Real-time imaging of the kidneys. FINDINGS: RIGHT KIDNEY: 9.5 x 5.0 x 4.3 cm (SAG x AP x TRV). The kidney is normal in size, contour, and echogenicity. Renal cortical thickness is normal. No focal parenchymal lesions or hydronephrosis. 0.5 x 0.3 x 0.5 cm nonobstructing calculus is seen in the mid kidney. LEFT KIDNEY: 10.0 x 4.7 x 3.4 cm (SAG x AP x TRV). The kidney is normal in size, contour, and echogenicity. Renal cortical thickness is normal. No calculi or focal parenchymal lesions. No hydronephrosis. ? 0.3 x 0.2 x 0.3 cm calcification versus nonobstructing stone in the lower pole. No twinkle artifact is identified. US/US renal BI IMPRESSION: 1. 0.5 cm nonobstructing calculus in the mid right kidney. 2. 0.3 cm calcification versus nonobstructing stone in the lower pole of the left kidney.
== END 2024-03-18 13:56 | disposition home or self-care (01) ==
LOC: HO.US 13:55
PROVIDERS: PCP Internal Medicine; Visit Provider Urology
DX: N20.0 Calculus of kidney (principal)
CPT/HCPCS: 76775

== ENCOUNTER 2024-04-12 13:51 | Outpatient (AMB) | payer MEDICARE, MEDICAID, SELFPAY ==
--- NOTE | 2024-04-12 14:08 | MHC.OFFVIS ---
Intake Visit Reasons: 1Y US(set) Intake Note: Patient is Present for Follow Up Ultrasound Urology Medication: Vitamin B6 Antibiotic Allergies: None Blood Thinners: None Allergies No Known Allergies [No Known Allergies*] Allergy (Verified 04/12/24 14:11) Medication List - Last Reconciled 04/12/24 by Donnie Green MD clonazepam 0.5 mg PO BEDTIME PRN omeprazole 40 mg PO DAILY 30 days pyridoxine (vitamin B6) 50 mg PO DAILY 90 days HPI Comments Details: Paolo is a pleasant male. He is a patient of Dr. Katz. He is seen for the following urologic conditions - nephrolithiasis Stable ultrasound Continue fluid intake vitamin-B Twelve month follow-up Nephrolithiasis Background of IBS with absorption issues Last presentation to emergency room 08/19 Imaging - 08/19 CT - 5mm distal right stone with hydronephrosis. 6mm right lower pole stone. Multiple small 3 mm stones left side. - 03/20 - Renal ultrasound with multiple small stones left side - 03/21 renal ultrasound stable 4 mm stones bilateral - 03/22 renal ultrasound bilateral stable 3 mm stones Investigations - 09/19 calcium 9.2, creatinine 1.1 24 hour urine 09/20 - shows good volume 1.8, adequate citrate, normal oxalate Interventions - ESWL multiple times PSA 01/19 1.8 PFSH Medical History CVA (cerebral vascular accident) History of gastritis History of hepatitis C Irritable bowel syndrome (IBS) Anxiety Surgical History History of esophagogastroduodenoscopy (EGD) History of colonoscopy History of hernia repair History of extraction of renal calculus Family History Mother Diabetes Father No problems noted. Other Mental health disorder Social History Housing: Apartment Alcohol intake: former Patient Tobacco Use Status: Former Tobacco user Second Hand Smoke Exposure: Yes service: No Current occupational status: disabled Cognitive needs: No Hearing needs: No Vision needs: Yes (reading glasses) Review of Systems Const Denies chills and Denies fever(s) Card Reports no additional complaints and Denies syncope Resp Denies cough GI Denies abdominal pain and Denies heartburn Reports as per HPI and Denies change in libido Neuro Denies syncope Psych Denies change in libido Endo Denies change in libido Physical Exam Const General: cooperative, healthy appearing, comfortable and no acute distress Orientation/consciousness: patient oriented x3 HEENT Face and sinus: Yes normal facial exam Mouth: moist mucous membranes Neck Neck: Yes normal visual inspection, Yes full ROM and Yes trachea midline Chest Chest palpation & inspection: normal inspection of the chest Resp Effort & Inspection: normal respiratory effort, able to speak in complete sentences and no respiratory distress GI Inspection: Yes normal to inspection Back/Spine/Pelvis Cervical Spine: normal cervical lordosis Thoracic/Lumbar Spine: thoracic and lumbar spine normal to inspection Skin General skin exam: no rashes or lesions noted Neuro General: patient oriented x3, gait normal, tone normal and moves all extremities Extrem General: Yes normal to inspection and Yes capillary refill normal Assessment & Plan Assessment & Plan (1) Renal calculi: Comment: (+) Hx of recurrent renal calculi/nephrolithiasis and S/P multiple ESWL in the past with Dr. Morley Code(s): N20.0 - Calculus of kidney Category: Medical Plan Twelve month follow-up Orders: Orders US renal BI 12 Months N20.0 - Calculus of kidney Medications: Refilled pyridoxine (vitamin B6) 50 mg PO DAILY 90 days 90 tabs 3RF N20.0 - Calculus of kidney Patient Instructions: Imaging studies, laboratory and physical exam results were discussed and reviewed in detail. No major barriers to patient understanding were identified. An opportunity to ask questions regarding the treatment plan was provided. All questions were answered. The patient expressed understanding and agreement with the above treatment plan. The patient is aware they should contact our office by phone for worsening of their current condition or the appearance of new urologic symptoms. Compliance is encouraged with any medications and followup testing that is ordered. It is a privilege to participate in the urologic care of your patient. If you have any questions or concerns regarding treatment for the above conditions, or other urologic issues, please do not hesitate to contact me. The office telephone contact is [phone]. This note is constructed using voice recognition software. While every effort has been made to ensure accuracy group tester errors may have been included. Yours sincerely, Dr Donnie Green MD, [facility] - Urology Providers of Expert, Compassionate Care for the Genitourinary System Coding Level of Care Code Est Pt Level 4 (76079) Diagnoses Renal calculi N20.0
== END 2024-04-12 15:12 | disposition home or self-care (01) ==
PROVIDERS: PCP Internal Medicine; Visit Provider Urology
DX: N20.0 Calculus of kidney (principal)
CPT/HCPCS: 99213

== ENCOUNTER → 2024-04-12 13:51 | Outpatient (BNVA) | payer MEDICARE, MEDICAID, SELFPAY | PROVIDERS: Visit Provider Urology | DX: N20.0 Calculus of kidney (principal) | CPT/HCPCS: 99212 ==

== ENCOUNTER 2024-04-16 07:36 | Outpatient (REF) | payer MEDICARE, MEDICAID, SELFPAY ==
--- NOTE | ~2024-04-16 | US_ITS ---
EXAMINATION: US ABDOMEN LIMITED CLINICAL INFORMATION: Hepatic fibrosis, unspecified. COMPARISON: Renal ultrasound 03/18/2024. Ultrasound abdomen complete 10/05/2023. CT abdomen and pelvis 08/19/2021. TECHNIQUE: Real-time imaging of the right upper quadrant abdominal viscera. FINDINGS: PANCREAS: Normal. LIVER: Liver is normal in size. Echotexture is coarsened consistent with chronic hepatocellular disease. No discrete mass. No ductal dilatation. GALLBLADDER: No cholelithiasis or evidence of acute cholecystitis. There may be adenomyomatosis in the gallbladder wall represented by crystal artifact. COMMON BILE DUCT: Normal in caliber measuring 0.3 cm in diameter. RIGHT KIDNEY: 8 mm nonobstructing calculus in the lower pole. No hydronephrosis or focal parenchymal lesions. The kidney measures 9.4 cm in maximum dimension. FREE FLUID: None. US/US abdomen limited IMPRESSION: Coarse hepatic parenchyma consistent with chronic hepatocellular disease. No visible liver mass. 8 mm nonobstructing calculus in the lower right kidney. No hydronephrosis.
== END 2024-04-16 07:37 | disposition home or self-care (01) ==
LOC: HO.US 07:36
PROVIDERS: PCP Internal Medicine; Visit Provider Internal Medicine
DX: K74.00 Hepatic fibrosis, unspecified (principal)
CPT/HCPCS: 76705

== ENCOUNTER 2024-06-07 14:23 | Outpatient (AMB) | payer MEDICARE, MEDICAID, SELFPAY ==
--- NOTE | 2024-06-07 14:29 | MHC.OFFVIS ---
Vital Signs 06/07/24 14:33 Height 5 ft 6 in Weight 123 lb 7.342 oz BMI 19.9 BP 116/57 L Blood Pressure Location Lt brachial Position Sitting Pulse 82 Intake Visit Reasons: f/u Cirrhosis and US Intake Note: Paolo presents in the office as as follow up for his US and cirrhosis. CC: States that he is here for results to US - no concerns at this time. Manager Consumer Required: No Allergies No Known Allergies [No Known Allergies*] Allergy (Verified 06/07/24 14:34) HPI Comments Details: This is a 52 y.o F with PMH of HCV s/p SVR (pt estimates 2017), etOH use disorder sober > 5 years, former smoker, who is here for follow up. Pt currently has no gastrointestinal complaints to include abd pain, N,V,D or blood in stool. No fam hx of CRC. Last colo: 2017 (Dr Lord) diagnostic colo for diarrhea. Normal including random bx from T.I and colon. On lab review, pt noted to have thrombocytopenia. No known hx of cirrhosis. Last EGD 2016 did not show any portal hypertension. Pt does not report any relapse with substance use. 04/27/23: EGD/colo 1. Normal esophagus 2. Healing antral ulcer (biopsy) 3. Normal duodenum 4. Internal hemorrhoids Path: (A and B): Immunostains for H. pylori are negative with appropriate control. Diagnosis A.? Gastric antrum, biopsy:? Mild reactive gastropathy with ectatic vessels and focal minimal chronic inactive inflammation; negative for intestinal metaplasia and dysplasia (see comment).? B.? Stomach, random, biopsy:? Gastric antral and body mucosa with ectatic vessels and mild reactive changes; negative for intestinal metaplasia and dysplasia (see comment).? 05/08/23: Reports decreased appetite without obv weight loss, otherwise no gastrointestinal complaints. EGD and colo reviewed with the pt. No evidence of portal HTN on EGD which the pt was relieved to hear. 06/07/24: Here for routine follow-up. No acute concerns at this time. Labs pending from last visit. States she would be able to go today. Had ultrasound abdomen 04/16/2024: Coarse hepatic parenchyma consistent with chronic hepatocellular disease. No visible liver mass. 8 mm nonobstructing calculus in the lower right kidney. No hydronephrosis PFSH Medical History CVA (cerebral vascular accident) History of gastritis History of hepatitis C Irritable bowel syndrome (IBS) Anxiety Surgical History History of esophagogastroduodenoscopy (EGD) History of colonoscopy History of hernia repair History of extraction of renal calculus Family History Mother Diabetes Father No problems noted. Other Mental health disorder Social History Housing: Apartment Alcohol intake: former Patient Tobacco Use Status: Former Tobacco user Second Hand Smoke Exposure: Yes service: No Current occupational status: disabled Cognitive needs: No Hearing needs: No Vision needs: Yes (reading glasses) Review of Systems Const All systems reviewed & are unremarkable except as noted in HPI and below Physical Exam Vital Signs: Last Vital Signs Pulse 82 06/07/24 14:33 BP 116/57 L 06/07/24 14:33 BMI result Body Mass Index 19.9 No apparent distress Nonicteric Abdomen soft, nondistended Alert and oriented x3, normal gait Assessment & Plan Assessment & Plan (1) Colon cancer screening: Code(s): Z12.11 - Encounter for screening for malignant neoplasm of colon Category: Medical (2) History of hepatitis C: Code(s): Z86.19 - Personal history of other infectious and parasitic diseases Category: Medical (3) Thrombocytopenia: Code(s): D69.6 - Thrombocytopenia, unspecified Category: Medical (4) Liver fibrosis: Code(s): K74.00 - Hepatic fibrosis, unspecified Category: Medical Plan 1. Likely has advanced fibrosis vs early cirrhosis. No evidence of portal HTN on EGD 03/2023. Recommendations: - Repeat EGD in 3 years since HCV is treated and no other liver injury such as etOH or metabolic factors. Reminder set. - Repeat US in Sep 2024 for HCC screening. Reminder set. Orders placed. 2. CRC screening: Repeat colonsocopy recommended in 2032 i.e 10 years. Follow up 1 y Orders: Orders Complete Blood Count no Diff 06/07/24 K74.00 - Hepatic fibrosis, unspecified Comprehensive Met. Panel 06/07/24 K74.00 - Hepatic fibrosis, unspecified Prothrombin Time INR 06/07/24 K74.00 - Hepatic fibrosis, unspecified US abdomen limited 10/07/24 K74.00 - Hepatic fibrosis, unspecified Coding Level of Care Code Est Pt Level 4 (87069) Diagnoses Colon cancer screening Z12.11 History of hepatitis C Z86.19 Thrombocytopenia D69.6 Liver fibrosis K74.00
[2024-06-07 14:33] VITALS: BP 116/57; PULSE 82; BMI 19.9
== END 2024-06-07 14:59 | disposition home or self-care (01) ==
PROVIDERS: PCP Internal Medicine; Visit Provider Internal Medicine
DX: K74.00 Hepatic fibrosis, unspecified (principal); Z86.19 Personal history of other infectious and parasitic diseases; D69.6 Thrombocytopenia, unspecified
CPT/HCPCS: 99214

== ENCOUNTER 2024-06-07 14:23 | Outpatient (REF) | payer MEDICARE, MEDICAID, SELFPAY ==
[2024-06-07 15:50] LABS: Hematocrit 46.3 % (42.0-52.0); Hemoglobin 15.1 g/dl (14.0-18.0); Mean Corpuscular HGB Conc 32.6 g/dl (31.0-36.0); Mean Corpuscular Hemoglobin 27.4 pg (27.0-33.0); Mean Corpuscular Volume 83.9 fL (80.0-98.0); Mean Platelet Volume 11.1 fL (9.4-12.4); Platelet Count 144 X10*3/uL (160-400); Red Blood Count 5.52 X10*6/uL (4.60-5.80); Red Cell Distribution Width 13.2 % (11.0-16.0); White Blood Count 4.1 X10*3/uL (4.8-10.8)
[2024-06-07 16:01] LABS: Prothrombin Time 12.3 SEC (11.1-13.3)
[2024-06-07 16:54] LABS: Alanine Aminotransferase 20 U/L (0-40); Albumin Level 4.6 g/dL (3.5-5.0); Alkaline Phosphatase 68 U/L (39-117); Anion Gap 11 (12-20); Aspartate Amino Transferase 18 U/L (5-37); Bilirubin Total 0.5 mg/dL (0.0-1.0); Blood Urea Nitrogen 11 mg/dL (9-16); Calcium 10.1 mg/dL (8.4-10.2); Carbon Dioxide 32 mmol/L (22-29); Chloride 105 mmol/L (96-108); Estimated Glomerular Filt Rate > 60; Glucose Random 73 mg/dL (60-115); Potassium 4.9 mmol/L (3.3-5.1); Sodium 143 mmol/L (135-145); Total Protein 7.4 g/dL (6.5-8.0)
== END 2024-06-07 14:24 | disposition home or self-care (01) ==
LOC: HO.LAB 14:23
PROVIDERS: PCP Internal Medicine; Visit Provider Internal Medicine
DX: K74.00 Hepatic fibrosis, unspecified (principal)
CPT/HCPCS: 36415; 80053; 85027; 85610; 99212

== ENCOUNTER 2024-09-23 07:50 | Outpatient (REF) | payer MEDICARE, SELFPAY | END 2024-09-23 07:51 | disposition home or self-care (01) | LOC: HO.US 07:50 | PROVIDERS: PCP Internal Medicine; Visit Provider Internal Medicine | DX: K74.00 Hepatic fibrosis, unspecified (principal) | CPT/HCPCS: 76705 ==

== ENCOUNTER 2025-03-25 14:45 | Outpatient (REF) | payer MEDICARE, MEDICAID, SELFPAY ==
--- NOTE | ~2025-03-25 | US_ITS ---
CLINICAL HISTORY: N20.0 - Calculus of kidney US Renal Comparison: None Findings: Right kidney normal echotexture, 9.6 cm length. Left kidney normal echotexture, 9.3 cm length. No hydronephrosis of either kidney. Normal color Doppler IMPRESSION: No hydronephrosis. No definite ultrasound evidence of renal stone. This document has been electronically signed by: Kathleen Rivera MD on 03/26/2025 13:10:36
== END 2025-03-25 14:46 | disposition home or self-care (01) ==
LOC: HO.US 14:45
PROVIDERS: PCP Internal Medicine; Visit Provider Urology
DX: N20.0 Calculus of kidney (principal)
CPT/HCPCS: 76775

== ENCOUNTER 2025-04-08 09:55 | Outpatient (REF) | payer MEDICARE, MEDICAID, SELFPAY ==
[2025-04-08 11:47] LABS: Prostate Specific Antigen 0.33 ng/mL (<0.05-4.0)
== END 2025-04-08 09:56 | disposition home or self-care (01) ==
LOC: HO.LAB 09:55
PROVIDERS: PCP Internal Medicine; Visit Provider Urology
DX: Z12.5 Encounter for screening for malignant neoplasm of prostate (principal)
CPT/HCPCS: 36415; 84153

== ENCOUNTER 2025-04-09 15:26 | Outpatient (AMB) | payer MEDICARE, MEDICAID, SELFPAY ==
--- NOTE | 2025-04-09 15:42 | MHC.OFFVIS ---
Intake Visit Reasons: 1y/US/PSA Intake Note: Patient is Present for 1y follow up/US/PSA Urology Medication: None Antibiotic Allergies: None Blood Thinners: None Allergies No Known Allergies [No Known Allergies*] Allergy (Verified 04/09/25 15:47) HPI Comments Details: Paolo is a pleasant male. He is a patient of Dr. Katz. He is seen for the following urologic conditions - nephrolithiasis Stable ultrasound Continue fluid intake vitamin-B Twelve month follow-up PSA low Continue fluid intake Nephrolithiasis Background of IBS with absorption issues Last presentation to emergency room 08/19 Imaging - 08/19 CT - 5mm distal right stone with hydronephrosis. 6mm right lower pole stone. Multiple small 3 mm stones left side. - 03/20 - Renal ultrasound with multiple small stones left side - 03/21 renal ultrasound stable 4 mm stones bilateral - 03/22 renal ultrasound bilateral stable 3 mm stones Investigations - 09/19 calcium 9.2, creatinine 1.1 24 hour urine 09/20 - shows good volume 1.8, adequate citrate, normal oxalate Interventions - ESWL multiple times PSA 01/19 1.8 PFSH Medical History CVA (cerebral vascular accident) History of gastritis History of hepatitis C Irritable bowel syndrome (IBS) Anxiety Surgical History History of esophagogastroduodenoscopy (EGD) History of colonoscopy History of hernia repair History of extraction of renal calculus Family History Mother Diabetes Father No problems noted. Other Mental health disorder Social History Housing: Apartment Alcohol intake: former Patient Tobacco Use Status: Former Tobacco user Second Hand Smoke Exposure: Yes service: No Current occupational status: disabled Cognitive needs: No Hearing needs: No Vision needs: Yes (reading glasses) Review of Systems Const Denies chills and Denies fever(s) Card Reports no additional complaints and Denies syncope Resp Denies cough GI Denies abdominal pain and Denies heartburn Reports as per HPI and Denies change in libido Neuro Denies syncope Psych Denies change in libido Endo Denies change in libido Physical Exam Const General: cooperative, healthy appearing, comfortable and no acute distress Orientation/consciousness: patient oriented x3 HEENT Face and sinus: Yes normal facial exam Mouth: moist mucous membranes Neck Neck: Yes normal visual inspection, Yes full ROM and Yes trachea midline Chest Chest palpation & inspection: normal inspection of the chest Resp Effort & Inspection: normal respiratory effort, able to speak in complete sentences and no respiratory distress GI Inspection: Yes normal to inspection Back/Spine/Pelvis Cervical Spine: normal cervical lordosis Thoracic/Lumbar Spine: thoracic and lumbar spine normal to inspection Skin General skin exam: no rashes or lesions noted Neuro General: patient oriented x3, gait normal, tone normal and moves all extremities Extrem General: Yes normal to inspection and Yes capillary refill normal Assessment & Plan Assessment & Plan (1) Renal calculi: Comment: (+) Hx of recurrent renal calculi/nephrolithiasis and S/P multiple ESWL in the past with Dr. Morley Code(s): N20.0 - Calculus of kidney Category: Medical Plan Twelve month follow-up PSA and renal ultrasound Orders: Orders Prostate Specific Antigen 04/08/25 Z12.5 - Encounter for screening for malignant neoplasm of prostate Patient Instructions: This note is constructed using voice recognition software. While every effort has been made to ensure accuracy radial arm saw operator errors may have been included. Imaging studies, laboratory and physical exam results were discussed and reviewed in detail. No major barriers to patient understanding were identified. An opportunity to ask questions regarding the treatment plan was provided. All questions were answered. The patient expressed understanding and agreement with the above treatment plan. The patient is aware they should contact our office by phone for worsening of their current condition or the appearance of new urologic symptoms. Compliance is encouraged with any medications and followup testing that is ordered. It is a privilege to participate in the urologic care of your patient. If you have any questions or concerns regarding treatment for the above conditions, or other urologic issues, please do not hesitate to contact me. The office telephone contact is [phone]. Sincerely, Dr Donnie Green MD, [facility] - Urology Compassionate Specialist Care for the Genitourinary System Coding Level of Care Code Est Pt Level 4 (12831) Diagnoses Renal calculi N20.0
== END 2025-04-09 16:02 | disposition home or self-care (01) ==
LOC: HO.HUSH 15:27
PROVIDERS: PCP Internal Medicine; Visit Provider Urology
DX: N20.0 Calculus of kidney (principal)
CPT/HCPCS: 99214

== ENCOUNTER → 2025-04-09 15:26 | Outpatient (BNVA) | payer MEDICARE, MEDICAID, SELFPAY | PROVIDERS: PCP Internal Medicine; Visit Provider Urology | DX: N20.0 Calculus of kidney (principal) | CPT/HCPCS: 99212 ==

== ENCOUNTER 2025-05-06 17:12 | Outpatient (AMB) | payer MEDICARE, MEDICAID, SELFPAY ==
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
[2025-05-06 17:17] VITALS: BP 118/78; PULSE 81; O2SAT 96; BMI 19.9
--- NOTE | 2025-05-06 17:17 | AM.OFFVISMDC ---
Intake Vital Signs 05/06/25 17:17 Height 5 ft 6 in Weight 123 lb 2 oz BMI 19.9 BP 118/78 Blood Pressure Location Rt brachial Position Sitting Pulse 81 Pulse Source Pulse Oximeter Pulse Oximetry (%) 96 Oxygen Delivery Method Room Air Intake Visit Reasons: AWV Dental Technician Metal Required: No Accompanied by: Self / Same As Patient Allergies No Known Allergies (No Known Allergies*) Allergy (Verified 05/06/25 17:26) Medication List - Last Reconciled 05/06/25 by Jeremy Katz MD clonazepam 0.5 mg PO BEDTIME PRN HPI AWV HPI Details Patient comes in today for his annual Medicare wellness exam and follow-up visit - he was last seen here over 2 years ago on 12/06/2022 Patient states that he currently feels okay and has had no significant issues over the past couple of years He continues to follow up with his psychiatrist on a regular basis and is currently only taking Lorazepam on an as-needed basis for his anxiety, which he feels has been well-controlled/managed lately He denies any headaches or dizziness Denies any chest pains, no shortness of breath No nausea/vomiting, no abdominal pain No change in bowel habits noted [place] of care was reviewed and updated today Patient does not have a healthcare proxy or MOLST form - he was provided with both and instructed to complete these as soon as possible IPPE/AWV: c/o of Annual Wellness Visit, subsequent visit. Medical / Social History Reviewed Past Medical History Yes . [place] of Care / Care Team list updated Yes . Surgical/Hospitalization History Yes . Current Medications (including OTC and supplements) Yes . Family History Yes . Tobacco Control form Yes . AUDIT-C (Alcohol use) form Yes . Illicit drug use in Social History Yes . Current diagnosis of depression? No Appropriate PHQ2/PHQ9 completed Yes . Data entered by Marker Maker and reviewed by provider Home Safety Throw rugs? No Grab bars? No Raised toilet seats? No Working smoke detectors? Yes Working carbon monoxide detectors? Yes Data entered by Marker Maker and reviewed by provider Activities of Daily Living (ADLs) Difficulty bathing or showering? No Difficulty dressing? No Difficulty using the toilet? No Difficulty getting in and out of bed? No Difficulty walking? No Receives help from another person with any of the above tasks? No Instrumental Activities of Daily Living (IADLs) Uses the telephone without help Gets to places out of walking distance without help Goes shopping for groceries without help Prepares own meals without help Does own minor home maintenance without help Does own laundry without help Does own housework without help Manages own money without help Currently takes medications? Yes Takes medication without help End-of-Life Planning Discussed advance directive Yes Advance directive not on file Discussed wishes expressed in advance directive agreed to following patient's wishes Fall Risk: Fall History Have you had any falls with injury in the past year? No . Have you had two or more falls in the past year? No . Fall Risk Assessment: No falls in the past year . HRA filled out by the patient, reviewed by Provider and scanned. [facility] Medical History (Updated 05/06/25 @ 17:30 by Jeremy Katz MD) CVA (cerebral vascular accident) History of gastritis History of hepatitis C Irritable bowel syndrome (IBS) Anxiety Surgical History (Updated 05/06/25 @ 17:30 by Jeremy Katz MD) History of esophagogastroduodenoscopy (EGD) History of colonoscopy History of hernia repair History of extraction of renal calculus Family History Mother Diabetes Father No problems noted. Other Mental health disorder Social History Housing: Apartment Alcohol intake: former Patient Tobacco Use Status: Former Tobacco user Second Hand Smoke Exposure: Yes Substance Use Type: Marijuana service: No Current occupational status: disabled Cognitive needs: No Hearing needs: No Vision needs: Yes (reading glasses) Questionnaire Medicare Wellness Checkup What [age] What gender do you identify with?: male During the past 4 weeks, how much have you been bothered by emotional problems such as feeling anxious, depressed, irritable, sad or downhearted, and blue?: not at all During the past 4 weeks, has your physical & emotional health limited your social activities with family, friends, neighbors, or groups?: not at all During the past 4 weeks, how much bodily pain have you generally had?: no pain During the past 4 weeks, was someone available to help you if you needed & wanted help?: no, not at all During the past 4 weeks, what was the hardest physical activity you could do for at least 2 minutes?: very light Can you get to places out of walking distance without help? (For eg., can you travel alone on buses, taxis or drive your car?): Yes Can you go shopping for groceries or clothes without someone's help?: Yes Can you prepare your own meals?: Yes Can you do your housework without help?: Yes Because of any health problems, do you need the help of another person with your personal care needs such as eating, bathing, dressing or getting around the house?: No Can you handle your own money without help?: Yes During the past 4 weeks, how would you rate your health in general?: fair During the past 4 weeks how have things been going for you?: very well; could hardly better Are you having difficulties driving your car?: no Do you always fasten your seat belt when you are in a car?: yes, usually During past 4 weeks, have you been bothered by the following: never: Falling or dizzy when standing up, Sexual problems?, Teeth or denture problems?, Problems using the telephone? and Tiredness or fatigue? and seldom: Trouble eating well? Have you fallen 2 or more times in the past year?: No Are you afraid of falling?: No Are you a smoker?: no During the past 4 weeks, how many drinks of wine, beer, or other alcoholic beverages did you have?: no alcohol at all Do you exercise for about 20 minutes 3 or more times a week?: no, I usually do not exercise this much Have you been given information to help with the following?: no: Hazards in your house that might hurt you? and no: Keeping track of your medications? How often do you have trouble taking medicines the way you have been told to take them?: I always take medicine as prescribed How confident are you that you can control & manage most of your health problems?: very confident What is your race?: or origin or descent Mini Mental State Exam (MMSE) Orientation What is the (year) (season) (date) (day) (month)?: year, season, date, day and month Where are we (state) (county) (town or city) (hospital) (floor)?: state, county, town or city, hospital/clinic and floor Score Score: 10 Activity of Daily Living Bathing - sponge bath, tub bath or shower: receives no assistance (gets in/out by self, if usual bathing means Dressing - getting clothes from closets & drawers, including inner/outer garments & fasteners.: gets clothes & gets completely dressed without help Toileting - going to the 'toilet room' for urine/bowel elimination & cleaning self/arranging clothes: goes to toilet room, cleans self, arranges clothes without help Transfer: moves in & out of bed and chair without help (may use support object) Continence: controls urination/bowel movements completely by self Feeding: feeds self without help Total Score: 0 Information obtained from: patient Using telephone: independent Traveling: independent Shopping: independent Preparing meals: independent Housework: independent Taking medicine: independent Managing money: independent PHQ-9 Over the last 2 weeks, how often have you been bothered by any of the following problems? 1. Little interest or pleasure in doing things: not at all 2. Feeling down, depressed, or hopeless: not at all 3. Trouble falling or staying asleep, or sleeping too much: not at all 4. Feeling tired or having little energy: not at all 5. Poor appetite or overeating: more than half the days 6. Feeling bad about yourself - or that you are a failure or have let yourself or your family down: not at all 7. Trouble concentrating on things, such as reading the newspaper or watching television: not at all 8. Moving or speaking so slowly that other people could have noticed. Or the opposite - being so fidgety or restless that you have been moving around a lot more than usual: not at all 9. Thoughts that you would be better off or of hurting yourself in some way: not at all Total score: 2 Depression Screening Interpretation: Negative Depression Screening Done: Yes 36826 - PHQ-9 Billing: Yes Source: Developed by Lilo LirianoW. Nima, Joel Weaver and colleagues, with an educational todd from [employer]. Review of Systems Const Denies chills, Denies fatigue, Denies fever(s) and Denies headache(s) ENT Denies dysphagia, Denies dizziness, Denies otalgia, Denies headache(s), Denies neck pain and Denies sore throat Card Denies chest pain, Denies rapid heart rate, Denies irregular heart rhythm, Denies palpitations and Denies dyspnea Resp Denies chest congestion, Denies cough and Denies dyspnea GI Denies abdominal pain, Denies constipation, Denies dysphagia, Denies heartburn, Denies diarrhea, Denies nausea and Denies vomiting Denies hematuria, Denies difficulty urinating, Denies dysuria and Denies urinary frequency Musc Denies back pain, Denies arthralgias and Denies neck pain Skin/Breast Denies lesions and Denies rash Neuro Denies dizziness, Denies headache(s) and Denies paresthesias Endo Denies fatigue and Denies palpitations Physical Exam Vital Signs: Last Vital Signs Pulse 81 05/06/25 17:17 BP 118/78 05/06/25 17:17 Pulse Ox 96 05/06/25 17:17 Oxygen Delivery Method Room Air 05/06/25 17:17 BMI result Body Mass Index 19.9 IPPE/AWV: Balance Romberg Yes . Tandem walk Yes . Walk and Turn Yes . Rise from sit to stand Yes . Vision Corrective lens No Vision screen pass Hearing Whisper test pass . Urinary incont. no. EKG Not clinically necessary. Const General: no acute distress and alert HEENT Ears: TM's normal bilaterally and EAC's normal Throat: Yes posterior oropharynx normal and Yes tonsils normal (no TP congestion) Neck Neck: Yes supple and No lymphadenopathy Thyroid: Thyroid normal Resp Auscultation: clear to auscultation bilaterally, no rales and no wheezes Cardio Rate: regular rate Rhythm: regular rhythm Heart sounds: no murmurs GI Palpation (GI): Soft to palpation and nontender Auscultation: normal bowel sounds General: Yes no CVA tenderness Back/Spine/Pelvis Back: no CVA tenderness Thoracic/Lumbar Spine: No lumbar spinal tenderness Skin Rashes: no rashes Extrem General: Yes no clubbing, cyanosis or edema Immunizations pneumoc 20-dino conj-dip cr(PF) 0.5 mL IM syringe Performing Provider: Jeremy Katz MD [facility] Administered by: FAIZA Desai on 05/06/25 18:05 Dose Route Admin Location Dispensed Lot Number Expiration Date [place] Bail Bond Agent 0.5 mL IM Left Deltoid 0.5 mL [id number] 04/29/26 5632-6972-82 [employer] Total Dispensed Waste 0.5 mL 0 % VIS Given Date VIS Provided VIS Publication Date 05/06/25 Single Vaccine 25 Eligibility Eligibility Date Funding Source Not VFC Eligible 05/06/25 Private Tenivac (PF) 5 Lf unit-2 Lf unit/0.5 mL intramuscular syringe Performing Provider: Jeremy Katz MD [facility] Administered by: FAIZA Desai on 05/06/25 18:05 Dose Route Admin Location Dispensed Lot Number Expiration Date [place] Bail Bond Agent 0.5 mL IM Right Deltoid 0.5 mL [id number] 12/28/26 19238-430-90 [employer] Total Dispensed Waste 0.5 mL 0 % VIS Given Date VIS Provided VIS Publication Date 05/06/25 Single Vaccine 21 Eligibility Eligibility Date Funding Source Not VFC Eligible 05/06/25 Private Assessment & Plan Assessment & Plan (1) Medicare annual wellness visit, subsequent: Code(s): Z00.00 - Encounter for general adult medical examination without abnormal findings Plan Follow up in 6 months Orders: Orders Complete Blood Count Auto Diff 05/06/25 D64.9 - Anemia, unspecified, Z00.00 - Encounter for general adult medical examination without abnormal findings TSH reflex Free T4 05/06/25 E78.00 - Pure hypercholesterolemia, unspecified, Z00.00 - Encounter for general adult medical examination without abnormal findings Pneumococcal 20 Immunization 05/06/25 Z23 - Encounter for immunization Comprehensive [place]. Panel Fast 05/06/25 E78.00 - Pure hypercholesterolemia, unspecified, Z00.00 - Encounter for general adult medical examination without abnormal findings Lipid Panel 05/06/25 E78.00 - Pure hypercholesterolemia, unspecified, Z00.00 - Encounter for general adult medical examination without abnormal findings UA CC w/rflx Micro + Cult 05/06/25 R30.0 - Dysuria, Z00.00 - Encounter for general adult medical examination without abnormal findings Vitamin D 25-OH Total 05/06/25 E55.9 - Vitamin D deficiency, unspecified, Z00.00 - Encounter for general adult medical examination without abnormal findings Prostate Specific Antigen Scr 05/06/25 Z00.00 - Encounter for general adult medical examination without abnormal findings Td Immunization 05/06/25 Z23 - Encounter for immunization Quality Reporting (2019) Depression/Bipolar (159/160/161/177) PHQ-9: Total score: 2 Coding Level of Care Code Medicare Subsequent (G0439) Diagnoses Medicare annual wellness visit, subsequent Z00.00 Additional Codes PHQ-9 - 93324 - PHQ-9 Billing: Yes ([id number])
== END 2025-05-06 17:48 | disposition home or self-care (01) ==
LOC: HO.HMCH 17:12
PROVIDERS: PCP Internal Medicine; Visit Provider Internal Medicine
DX: Z23 Encounter for immunization (principal)

== ENCOUNTER → 2025-05-06 17:12 | Outpatient (BNVA) | payer MEDICARE, MEDICAID, SELFPAY | PROVIDERS: PCP Internal Medicine; Visit Provider Internal Medicine | DX: Z00.00 Encounter for general adult medical examination without abnormal findings (principal); Z23 Encounter for immunization; N20.0 Calculus of kidney; K58.9 Irritable bowel syndrome, unspecified; F41.9 Anxiety disorder, unspecified; Z87.19 Personal history of other diseases of the digestive system; Z86.19 Personal history of other infectious and parasitic diseases | CPT/HCPCS: 90471; 90677; 90714; 96127 ==

== ENCOUNTER 2025-06-02 08:29 | Outpatient (REF) | payer MEDICARE, MEDICAID, SELFPAY ==
[2025-06-02 08:48] LABS: MANUAL DIFF FLAG NO
--- OUTSIDE RECORDS SUMMARY | 2025-06-02 08:52 | XMS_ITS | Patient Health Record ---
Author Organization [facility] Address [address] [place] [address] Care Team Providers Care Clinical Reimbursement Specialist Name Role Phone Brisa Katz MDh Primary Care Provider Willy Edwards Unavailable [phone] Reason For Referral No Information Medications Medication SIG (Take, Route, Fr equency, Duration) Notes Start Date End Date Status Pantothenic Acid Act solange Problems Problem Type SNOMED Code ICD Code Onset Dates Problem Status W/U Status Risk Notes Problem [id number] Chronic hepatitis C without hepatic coma (B18.2) Active confirmed Problem 793294977 Elevated liver enzymes (R74.8) Active confirmed Problem 920238610 Elevated alpha-fetoprote in (R77.2) Active confirmed Plan Of Treatment Pending Test Test Name Order Date BUN 02/13/2013 BUN 08/31/2014 CREATININE 02/13/2013 CREATININE 08/31/2014 LIVER PROFILE 04/27/2015 LIVER PROFILE 01/01/2014 LIVER PROFILE 07/09/2016 LIVER PROFILE 01/03/2015 LIVER PROFILE 09/06/2015 LIVER PROFILE 08/06/2014 LIVER PROFILE 06/07/2016 CBC w DIFF 08/06/2014 CBC w DIFF [...] OF [place] [address] [place] [address] [id number] AUREA SPENCE Self - patient is the insured MEDICAID OF [employer] [address] [place] [phone] [id number] AUREA SPENCE Self - patient is the [...] injury with some left-sided weaknes s Denies [place],DM,CVA,Lung disease,renal dise ase Liver biopsy in 10/2012 [...]
[2025-06-02 09:17] LABS: Hematocrit 43.1 % (42.0-52.0); Hemoglobin 14.1 g/dl (14.0-18.0); Imm Gran Abs Auto 0.00 X10*3/uL (0.00-0.03); Imm Gran Pct Auto 0.0 % (0.0-0.4); Lymphocytes Absolute Auto 0.7 X10*3/uL (1.2-4.9); Mean Corpuscular HGB Conc 32.7 g/dl (31.0-36.0); Mean Corpuscular Hemoglobin 27.2 pg (27.0-33.0); Mean Corpuscular Volume 83.0 fL (80.0-98.0); NRBC Abs Auto 0.000 X10*3/uL (0.0-0.012); NRBC Pct Auto 0.0 /100WBC (0.0-0.2); Platelet Count 114 X10*3/uL (160-400); Red Blood Count 5.19 X10*6/uL (4.60-5.80); White Blood Count 3.4 X10*3/uL (4.8-10.8)
[2025-06-02 09:20] LABS: Appearance Urine Clear; Glucose Urine UA Negative (Negative); PH 6.0 (5.0-9.0); Specific Gravity - Urine 1.010 (1.005-1.025); UMIC TRIGGER UACC YES
[2025-06-02 09:58] LABS: Alanine Aminotransferase 19 U/L (0-40); Albumin Level 4.4 g/dL (3.5-5.0); Alkaline Phosphatase 66 U/L (39-117); Anion Gap 11 (12-20); Aspartate Amino Transferase 26 U/L (5-37); Blood Urea Nitrogen 14 mg/dL (9-16); Calcium 8.9 mg/dL (8.4-10.2); Carbon Dioxide 29 mmol/L (22-29); Chloride 106 mmol/L (96-108); Cholesterol 190 mg/dL (<200); Estimated Glomerular Filt Rate > 60; HDL Cholesterol 39 mg/dL (>40); Potassium 4.6 mmol/L (3.3-5.1); Sodium 141 mmol/L (135-145); Total Protein 6.9 g/dL (6.5-8.0); Triglycerides 100 mg/dL (<150)
== END 2025-06-02 08:30 | disposition home or self-care (01) ==
LOC: HO.LAB 08:29
PROVIDERS: PCP Internal Medicine; Visit Provider Internal Medicine
DX: Z00.00 Encounter for general adult medical examination without abnormal findings (principal); E78.00 Pure hypercholesterolemia, unspecified; D64.9 Anemia, unspecified; E55.9 Vitamin D deficiency, unspecified; Z12.5 Encounter for screening for malignant neoplasm of prostate
CPT/HCPCS: 36415; 80053; 80061; 81001; 82306; 84153; 84443; 85025

== ENCOUNTER 2025-06-05 12:40 | Emergency (ER) | payer MEDICARE, MEDICAID, SELFPAY ==
--- NOTE | ~2025-06-05 | XR_ITS ---
CLINICAL HISTORY: r flank pain 1 view abdomen Comparison: Renal ultrasound from 03/25/2025 Findings: No consolidation of the partially imaged lung bases. No defined small-bowel dilatation. Mild-moderate stool burden with nonspecific bowel-gas pattern. No well-defined or large calcification of the region of the right kidney. 3 mm calcification in the left upper quadrant may be in the left kidney or related to ingested material. Degenerative changes include the partially imaged hips. IMPRESSION: No small bowel obstruction. No x-ray correlate for right renal echogenicity on the comparison ultrasound. Please consider CT, if clinically indicated. This document has been electronically signed by: Usama Chaidez MD on 06/05/2025 19:10:53
--- NOTE | ~2025-06-05 | US_ITS ---
EXAMINATION: US RETROPERITONEAL LIMITED, RIGHT (RENAL ONLY) CLINICAL INFORMATION: Flank pain, history of stones. COMPARISON: 03/25/2025. TECHNIQUE: Real-time imaging of the right kidney. FINDINGS: RIGHT KIDNEY: 12.0 x 5.9 x 5.5 cm (SAG x AP x TRV). The kidney is normal in size, contour, and echogenicity. Renal cortical thickness is normal. No calculi or focal parenchymal lesions. There is moderate hydronephrosis, and proximal hydroureter. Cannot identify an obstructing abnormality, although the distal ureter is not well seen. US/US renal RT IMPRESSION: Moderate right hydronephrosis and proximal hydroureter. Suspect a more distal ureteral obstruction. Electronically signed by: Champ Rivas MD 06/05/2025 01:51 PM EDT
--- NOTE | 2025-06-05 13:11 | ED.GENADULT ---
HPI - General Adult General Chief complaint: Abdominal Pain Stated complaint: abd pain quest kidney stone Time Seen by Provider: 06/05/25 17:22 History of Present Illness ED Provider: Pedro Kennedy MD HPI narrative: 54-year-old male with history of ureteral colic chronic. Chronic recurrent kidney stones denies any prior stenting no fever or chills. Right flank pain radiating to the scrotum consistent with his previous episodes. No trauma. No scrotal changes or swelling. Related Data Home Medications ?Medication ?Instructions ?Recorded ?Confirmed clonazepam 0.5 mg tablet 0.5 mg PO BEDTIME PRN Insomnia 08/10/21 05/06/25 Previous Rx's ?Medication ?Instructions ?Recorded ibuprofen 600 mg tablet 600 mg PO Q8H PRN pain 5 days #15 06/05/25 tabs morphine 15 mg immediate release 15 mg PO Q8H PRN pain #7 tabs 06/05/25 tablet tamsulosin 0.4 mg capsule (Flomax) 0.4 mg PO DAILY #7 caps 06/05/25 Allergies Allergy/AdvReac Type Severity Reaction Status Date / Time No Known Allergies (No Known Allergy Verified 06/05/25 13:14 Allergies*) FOR[facility]LY [facility] Past Medical History Medical History (Updated 06/05/25 @ 19:56 by Pedro Kennedy MD) CVA (cerebral vascular accident) History of gastritis History of hepatitis C Irritable bowel syndrome (IBS) Anxiety Surgical History (Updated 05/06/25 @ 17:30 by Jeremy Katz MD) History of esophagogastroduodenoscopy (EGD) History of colonoscopy History of hernia repair History of extraction of renal calculus Family History Family History Mother Diabetes Father No problems noted. Other Mental health disorder Social History Social History Housing: Apartment Alcohol intake: former Patient Tobacco Use Status: Former Tobacco user Smoked in Last 30 Days: No Second Hand Smoke Exposure: Yes Substance Use Type: Marijuana Advance Directives: No Advance Directives Information Provided: No Do you have a plan to hurt others: No Plan service: No Current occupational status: disabled Cognitive needs: No Hearing needs: No Vision needs: Yes (reading glasses) Physical Exam ED Exam Exam: EXAM: Gen: Alert, awake uncomfortable appearing in pain Head: Atraumatic Eyes: Anicteric, Normal conjunctiva. ENT: Moist mucosa, no pallor. ? Neck: Supple. Skin: ?No observable rash or bruising on exposed or examined skin Respiratory: Breathing comfortably, No distress.Clear to auscultation bilaterally, symmetric chest expansion, No wheeze, rales, ronchi. Cardiovascular: Regular rate and rhythm. No murmurs or rub. Well perfused periphery, warm extremities. No edema. ? Abdominal: No focal tenderness. Soft, no objective distension. No palpable masses or obvious organomegaly. ?No guarding, no rebound tenderness or other peritoneal findings. : Moderate right flank tenderness Neuro: Alert. Gross movement of all extremities intact. ? Psych: Calm. Cooperative. MSK: No grossly visible deformity. Vital signs: See flowsheet Vital Signs: Vital Signs - 24 hr 06/05/25 13:12 06/05/25 18:56 06/05/25 20:07 Temperature 97.2 F 97.5 F 97.5 F Pulse Rate 73 83 83 Respiratory Rate 18 16 16 Blood Pressure 184/88 H 139/82 139/82 Pulse Oximetry 98 99 99 Oxygen Delivery Method Room Air Room Air Room Air BMI result Body Mass Index 20.1 Course Course Course Narrative: This is a rapid medical exam performed by Isra Spear NP: Additional HPI, ROS, PE not included below will be deferred to primary provider. Patient is a 54-year-old male with history of liver fibrosis, renal calculi, hx of Hep C, IBS, thrombocytopenia presenting to the ED with complaint of right flank pain for the past week. States feels similar episodes of kidney stones. Nausea and vomiting. Episode of hematuria on Sat. Plan; labs, UA, renal u/s Medications Administered Discontinued Medications Generic Name Dose Route Start Last Admin Trade Name Freq PRN Reason Stop Dose Admin Sodium Chloride 1,000 mls @ 999 mls/hr 06/05/25 18:45 06/05/25 18:59 Ns IV 06/05/25 19:45 999 mls/hr .Q1H1M ROCHELLE Administration Ketorolac Tromethamine 10 mg 06/05/25 18:31 06/05/25 19:00 Ketorolac Tromethamine 15 Mg/Ml Vial IVPUSH 06/05/25 18:32 10 mg ONCE ONE Administration Morphine Sulfate 2 mg 06/05/25 18:31 06/05/25 19:00 Morphine Sulfate 2 Mg/Ml Cartridge IVPUSH 06/05/25 18:32 2 mg ONCE ONE Administration Protocol Tamsulosin HCl 0.4 mg 06/05/25 18:35 06/05/25 19:00 Tamsulosin Hcl 0.4 Mg Capsule PO 06/05/25 18:36 0.4 mg ONCE ONE Administration Medical Decision Making Medical Decision Making MDM Narrative: Medical Decision Making: [age] male with recurrent right flank pain consistent with previous ureteral colic. Right-sided hydronephrosis. Hematuria without UTI on urinalysis. Pain well controlled morphine Toradol IV fluid Flomax. KUB without large mid ureter or distal stone noted. Patient's pain well controlled shared decision-making discussion DC with return precautions Preliminary Favored Differential Diagnosis: Ureteral colic, among additional considered etiologies Testing Interpreted Independently: Not Applicable Radiology or Lab testing Results Reviewed: Not Applicable Consults: Not Applicable Independent Historians/External Chart Reviews: Not Applicable Social Determinants of Health Impacting MDM/Planning: Not Applicable Lab Data 06/05/25 13:41 06/05/25 13:41 Labs: Lab Results 06/05/25 Range/Units 13:41 WBC 5.3 (4.8-10.8) X10*3/uL RBC 5.21 (4.60-5.80) X10*6/uL Hgb 14.2 (14.0-18.0) g/dl Hct 42.8 (42.0-52.0) % MCV 82.1 (80.0-98.0) fL MCH 27.3 (27.0-33.0) pg MCHC 33.2 (31.0-36.0) g/dl RDW 13.2 (11.0-16.0) % Plt Count 127 L (160-400) X10*3/uL MPV 10.8 (9.4-12.4) fL Immature Gran % (Auto) 0.2 (0.0-0.4) % Neut % (Auto) 80.8 H (45-73) % Lymph % (Auto) 10.2 L (20-40) % [place] % (Auto) 7.1 (2-11) % Eos % (Auto) 0.9 (0-4) % Baso % (Auto) 0.8 (0-2) % Lymph # (Auto) 0.5 L (1.2-4.9) X10*3/uL [place] # (Auto) 0.4 (0.1-1.2) X10*3/uL Eos # (Auto) 0.1 (0.0-0.4) X10*3/uL Baso # (Auto) 0.0 (0.0-0.2) X10*3/uL Abs Immat Gran (auto) 0.01 (0.00-0.03) X10*3/uL Absolute Neuts (auto) 4.3 (2.0-8.3) x10*3/uL Absolute Nucleated RBC 0.000 (0.0-0.012) X10*3/uL Nucleated RBC % (auto) 0.0 (0.0-0.2) /100WBC Sodium 141 (135-145) mmol/L Potassium 4.3 (3.3-5.1) mmol/L Chloride 105 (96-108) mmol/L Carbon Dioxide 29 (22-29) mmol/L Anion Gap 11 L (12-20) BUN 12 (9-16) mg/dL Creatinine 1.13 (0.5-1.4) mg/dL Estim Creat Clear Calc 61.1 Estimated GFR > 60 Random Glucose 89 (60-115) mg/dL Calcium 9.1 (8.4-10.2) mg/dL Total Bilirubin 0.9 (0.0-1.0) mg/dL AST 33 (5-37) U/L ALT 21 (0-40) U/L Alkaline Phosphatase 66 (39-117) U/L Total Protein 7.2 (6.5-8.0) g/dL Albumin 4.6 (3.5-5.0) g/dL Urine Color Yellow Urine Appearance Clear Urine pH 5.5 (5.0-9.0) Ur Specific [place] 1.020 (1.005-1.025) Urine Protein Negative (Neg-Trace) mg/dL Urine Glucose (UA) Negative (Negative) mg/dL Urine Ketones Negative (Negative) mg/dL Urine Blood Large (3+) H (Negative) Urine Nitrite Negative (Negative) Ur Leukocyte Esterase Trace H (Negative) Urine RBC 6-10 H (0-2) /HPF Urine WBC 0-5 (0-5) /HPF Ur Squamous Epith Cells 0-2 (0-2) /HPF Urine Bacteria None Seen (None Seen) Hyaline Casts 0-2 (0-2) /LPF Discharge Plan Discharge Clinical Impression: Renal calculi Patient Disposition: Home, Self-Care Instructions: Hydronephrosis (ED) Additional Instructions: DISCHARGE DIAGNOSES: Right-sided flank pain likely recurrent kidney stone/ureteral colic HISTORY OF PRESENTATION: ?Right-sided flank pain EMERGENCY DEPARTMENT COURSE,TESTS, TREATMENTS: While in the ED today you had an ultrasound of the right kidney showed blockage hydronephrosis consistent with likely recurrent ureteral colic. Urine did not show signs of UTI. There was blood in your urine. Blood counts kidney function was normal on blood testing. X-ray did not show any acute abnormalities. If your pain was well-controlled we had a discussion and you prefer discharged home DISCHARGE MEDICATIONS: ?Flomax, breakthrough pain medicine and ibuprofen for pain on a scheduled basis FOLLOW-UP: ?Call your primary or general physician soon as possible to discuss your symptoms, your ED visit and to discuss follow up plans Urology as needed if pain persists beyond 3 days INSTRUCTIONS ?& RETURN PRECAUTIONS: If any symptoms change first call your primary physician, if it is after-hours your primary doctors office should have a provider residential sales consultant you can speak with. If the symptoms are severe or very concerning to you then call 911 or return to the ED. Severe pain inability of the urinate, high fever return back to the emergency department Pedro Kennedy MD Emergency Physician [facility] Prescriptions: New tamsulosin [Flomax] 0.4 mg capsule 0.4 mg PO DAILY Qty: 7 0RF morphine 15 mg tablet 15 mg PO Q8H PRN (Reason: pain) Qty: 7 0RF Rx Instructions: Partial Fill upon patient request. ibuprofen 600 mg tablet 600 mg PO Q8H PRN (Reason: pain) 5 Days Qty: 15 0RF No Action clonazepam 0.5 mg tablet 0.5 mg PO BEDTIME PRN (Reason: Insomnia) Rx Instructions: administer 30 minutes before bedtime Interventions: ED Discharge Assessment Last Done: 06/05/25 20:07 Discharge Date/Time: 06/05/25 20:08 Print Language: Italian
[2025-06-05 13:12] VITALS: BP 184/88; PULSE 73; RESP 18; TEMP 36.2; O2SAT 98; BMI 20.1
[2025-06-05 13:55] LABS: MANUAL DIFF FLAG NO
[2025-06-05 13:58] LABS: Appearance Urine Clear; Glucose Urine UA Negative (Negative); Hematocrit 42.8 % (42.0-52.0); Hemoglobin 14.2 g/dl (14.0-18.0); Imm Gran Abs Auto 0.01 X10*3/uL (0.00-0.03); Imm Gran Pct Auto 0.2 % (0.0-0.4); Lymphocytes Absolute Auto 0.5 X10*3/uL (1.2-4.9); Mean Corpuscular HGB Conc 33.2 g/dl (31.0-36.0); Mean Corpuscular Hemoglobin 27.3 pg (27.0-33.0); Mean Corpuscular Volume 82.1 fL (80.0-98.0); NRBC Abs Auto 0.000 X10*3/uL (0.0-0.012); NRBC Pct Auto 0.0 /100WBC (0.0-0.2); PH 5.5 (5.0-9.0); Platelet Count 127 X10*3/uL (160-400); Red Blood Count 5.21 X10*6/uL (4.60-5.80); Specific Gravity - Urine 1.020 (1.005-1.025); UMIC TRIGGER UACC YES; White Blood Count 5.3 X10*3/uL (4.8-10.8)
[2025-06-05 14:11] LABS: Alanine Aminotransferase 21 U/L (0-40); Albumin Level 4.6 g/dL (3.5-5.0); Alkaline Phosphatase 66 U/L (39-117); Anion Gap 11 (12-20); Aspartate Amino Transferase 33 U/L (5-37); Blood Urea Nitrogen 12 mg/dL (9-16); Calcium 9.1 mg/dL (8.4-10.2); Carbon Dioxide 29 mmol/L (22-29); Chloride 105 mmol/L (96-108); Creatinine Clr Calc Pharmacy 61.1; Estimated Glomerular Filt Rate > 60; Potassium 4.3 mmol/L (3.3-5.1); Sodium 141 mmol/L (135-145); Total Protein 7.2 g/dL (6.5-8.0)
--- OUTSIDE RECORDS SUMMARY | 2025-06-05 17:32 | XMS_ITS | Patient Health Record ---
Author Organization [facility] Address [address] [place] [address] Care Team Providers Care Assurance Engineer Name Role Phone Jeremy Katz MD Primary Care Provider Willy Edwards Unavailable [phone] Reason For Referral No Information Medications Medication SIG (Take, Route, Fr equency, Duration) Notes Start Date End Date Status Pantothenic Acid Act solange Problems Problem Type SNOMED Code ICD Code Onset Dates Problem Status W/U Status Risk Notes Problem 002859149 Chronic hepatitis C without hepatic coma (B18.2) Active confirmed Problem [id number] Elevated liver enzymes (R74.8) Active confirmed Problem [id number] Elevated alpha-fetoprote in (R77.2) Active confirmed Plan [...] OF [place] [address] [place] [address] [phone] [id number] AUREA SPENCE Self - patient is the insured MEDICAID OF [email or web address] [address] [place] [phone] [id number] AUREA SPENCE Self - patient is the [...] injury with some left-sided weaknes s Denies [place],DM,CVA,Lung disease,renal dise ase Liver biopsy in 10/2012 [...]
[2025-06-05 18:56] VITALS: BP 139/82; PULSE 83; RESP 16; TEMP 36.4; O2SAT 99
[2025-06-05 20:07] VITALS: BP 139/82; PULSE 83; RESP 16; TEMP 36.4; O2SAT 99
== END 2025-06-05 20:08 | disposition home or self-care (01) ==
PROVIDERS: Registered Nurse Emergency; Emergency Provider Emergency Medicine; PCP Internal Medicine
DX: N20.0 Calculus of kidney (principal)
CPT/HCPCS: 36415; 74018; 76775; 80053; 81001; 81003; 85025; 96374; 96375; 99284; J1885; J2270

== ENCOUNTER → 2025-06-05 13:13 | Outpatient (BNV) | payer MEDICARE, MEDICAID, SELFPAY | PROVIDERS: PCP Internal Medicine; Visit Provider Radiology Diagnostic Radiology | DX: N13.30 Unspecified hydronephrosis (principal) | CPT/HCPCS: 76775 ==

== ENCOUNTER 2025-06-09 14:27 | Outpatient (AMB) | payer MEDICARE, MEDICAID, SELFPAY ==
--- NOTE | 2025-06-09 14:28 | MHC.OFFVIS ---
Vital Signs 06/09/25 14:30 Height 5 ft 6 in Weight 125 lb 10.616 oz BMI 20.3 BP 178/84 H Blood Pressure Location Lt brachial Position Sitting Pulse 94 Intake Visit Reasons: 1 year follow up liver disease Intake Note: Paolo presents in the office as a 1 year follow up liver disease. CC: States that he was in the ED for the kidney stones and states other than that his GI is good! No concerns. Database Security Expert Required: No Allergies No Known Allergies (No Known Allergies*) Allergy (Verified 06/09/25 14:31) HPI Comments Details: This is a 52 y.o F with PMH of HCV s/p SVR (pt estimates 2017), etOH use disorder sober > 5 years, former smoker, who is here for follow up. Pt currently has no gastrointestinal complaints to include abd pain, N,V,D or blood in stool. No fam hx of CRC. Last colo: 2017 (Dr Lord) diagnostic colo for diarrhea. Normal including random bx from T.I and colon. On lab review, pt noted to have thrombocytopenia. No known hx of cirrhosis. Last EGD 2017 did not show any portal hypertension. Pt does not report any relapse with substance use. 04/27/23: EGD/colo 1. Normal esophagus 2. Healing antral ulcer (biopsy) 3. Normal duodenum 4. Internal hemorrhoids Path: (A and B): Immunostains for H. pylori are negative with appropriate control. Diagnosis A.? Gastric antrum, biopsy:? Mild reactive gastropathy with ectatic vessels and focal minimal chronic inactive inflammation; negative for intestinal metaplasia and dysplasia (see comment).? B.? Stomach, random, biopsy:? Gastric antral and body mucosa with ectatic vessels and mild reactive changes; negative for intestinal metaplasia and dysplasia (see comment).? 05/08/23: Reports decreased appetite without obv weight loss, otherwise no gastrointestinal complaints. EGD and colo reviewed with the pt. No evidence of portal HTN on EGD which the pt was relieved to hear. 06/07/24: Here for routine follow-up. No acute concerns at this time. Labs pending from last visit. States she would be able to go today. Had ultrasound abdomen 04/16/2024: Coarse hepatic parenchyma consistent with chronic hepatocellular disease. No visible liver mass. 8 mm nonobstructing calculus in the lower right kidney. No hydronephrosis 06/09/25: Here for follow up. Routine follow up. No active symptoms. US 08/2024 with no cirrhosis on US and low Fib 4. More recently bothered by kidney stones. PFSH Medical History CVA (cerebral vascular accident) History of gastritis History of hepatitis C Irritable bowel syndrome (IBS) Anxiety Surgical History History of esophagogastroduodenoscopy (EGD) History of colonoscopy History of hernia repair History of extraction of renal calculus Family History Mother Diabetes Father No problems noted. Other Mental health disorder Social History Housing: Apartment Alcohol intake: former Patient Tobacco Use Status: Former Tobacco user Second Hand Smoke Exposure: Yes Substance Use Type: Marijuana service: No Current occupational status: disabled Cognitive needs: No Hearing needs: No Vision needs: Yes (reading glasses) Review of Systems Const All systems reviewed & are unremarkable except as noted in HPI and below Physical Exam Exam Exam: No apparent distress Nonicteric Abdomen soft, nondistended Alert and oriented x3, normal gait Vital Signs: Last Vital Signs Pulse 94 06/09/25 14:30 BP 178/84 H 06/09/25 14:30 BMI result Body Mass Index 20.3 Assessment & Plan Assessment & Plan (1) Colon cancer screening: Code(s): Z12.11 - Encounter for screening for malignant neoplasm of colon Category: Medical (2) History of hepatitis C: Code(s): Z86.19 - Personal history of other infectious and parasitic diseases Category: Medical (3) Thrombocytopenia: Code(s): D69.6 - Thrombocytopenia, unspecified Category: Medical (4) Liver fibrosis: Code(s): K74.00 - Hepatic fibrosis, unspecified Category: Medical Plan 1. Based on updated Fib 4 1.45 no advanced fibrosis. Will proceed with planned EGD in 2025 but if continues without CSPH further screening can be deferred since HCV is treated and no other liver injury such as etOH or metabolic factors. US abd ordered. 2. CRC screening: Repeat colonsocopy recommended in 2032 i.e 10 years. Follow up after egd Orders: Orders US abdomen complete Today Z86.19 - Personal history of other infectious and parasitic diseases Coding Level of Care Code Est Pt Level 4 (00886) Diagnoses Colon cancer screening Z12.11 History of hepatitis C Z86.19 Thrombocytopenia D69.6 Liver fibrosis K74.00
[2025-06-09 14:30] VITALS: BP 178/84; PULSE 94; BMI 20.3
--- OUTSIDE RECORDS SUMMARY | 2025-06-09 14:55 | XMS_ITS | Patient Health Record ---
Author Organization [facility] Address [address] [place] [address] Care Team Providers Care Service Center Representative Name Role Phone Brisa Katz MDh Primary Care Provider Willy Edwards Unavailable [phone] Reason For Referral No Information Medications Medication SIG (Take, Route, Fr equency, Duration) Notes Start Date End Date Status Pantothenic Acid Act solange Problems Problem Type SNOMED Code ICD Code Onset Dates Problem Status W/U Status Risk Notes Problem [id number] Chronic hepatitis C without hepatic coma (B18.2) Active confirmed Problem 309680325 Elevated liver enzymes (R74.8) Active confirmed Problem 741898721 Elevated alpha-fetoprote in (R77.2) Active confirmed Plan [...] OF [place] [address] [place] [address] [id number] AUREA SPENCE Self - patient is the insured MEDICAID OF [employer] [address] [place] [id number] AUREA SPENCE Self - patient is the [...] injury with some left-sided weaknes s Denies [place],DM,CVA,Lung disease,renal dise ase Liver biopsy in 10/2012 [...]
== END 2025-06-09 15:15 | disposition home or self-care (01) ==
LOC: HO.HGI 14:28
PROVIDERS: PCP Internal Medicine; Visit Provider Internal Medicine
DX: D69.6 Thrombocytopenia, unspecified (principal); K74.00 Hepatic fibrosis, unspecified; Z86.19 Personal history of other infectious and parasitic diseases
CPT/HCPCS: 99214

== ENCOUNTER → 2025-06-09 14:27 | Outpatient (BNVA) | payer MEDICARE, MEDICAID, SELFPAY | PROVIDERS: PCP Internal Medicine; Visit Provider Internal Medicine | DX: Z12.11 Encounter for screening for malignant neoplasm of colon (principal); D69.6 Thrombocytopenia, unspecified; K74.00 Hepatic fibrosis, unspecified; Z86.19 Personal history of other infectious and parasitic diseases | CPT/HCPCS: 99212 ==

== ENCOUNTER 2025-08-06 08:13 | Outpatient (REF) | payer MEDICARE, SELFPAY ==
--- NOTE | ~2025-08-06 | US_ITS ---
CLINICAL HISTORY: Z86.19 - hx Hep C US abdomen limited with color Doppler Comparison: CR - XR KUB - 06/05/25 18:49 EDT US - US RENAL BI - 03/25/25 14:55 EDT US/SR - US ABDOMEN LIMITED - 09/23/24 08:04 EST Findings: Visualized pancreas is normal. Tail obscured by bowel gas. Liver is normal in size with coarse hepatic echotexture. No focal hepatic masses. Common duct 3.0 mm diameter. Gallbladder is physiologically distended. No gallstones, sludge or wall abnormalities. No gallbladder wall thickening. No pericholecystic fluid. No sonographic Mcgarry sign. Main portal vein antegrade. Right kidney measures, 9.4 cm in length. Normal cortical width and echotexture. No hydronephrosis calculus or mass. Impression: 1. Coarsened hepatic echotexture reflecting hepatic steatosis or diffuse hepatocellular disease. No focal hepatic lesions. This document has been electronically signed by: Gilles Benton MD on 08/07/2025 10:06:42
== END 2025-08-06 08:14 | disposition home or self-care (01) ==
LOC: HO.US 08:13
PROVIDERS: PCP Internal Medicine; Visit Provider Internal Medicine
DX: Z86.19 Personal history of other infectious and parasitic diseases (principal)
CPT/HCPCS: 76705

== ENCOUNTER 2025-10-10 13:18 | Outpatient (REF) | payer MEDICARE, SELFPAY ==
--- NOTE | ~2025-10-10 | XR_ITS ---
EXAMINATION: XR ELBOW 3 VIEWS RIGHT HISTORY: M25.521 - Pain in right elbow COMPARISON: There are no prior studies available for comparison. FINDINGS: Three views of the right elbow are submitted. Osseous mineralization is normal. There is no fracture or dislocation. The joint spaces are preserved. The soft tissues are unremarkable. XR/XR elbow RT min 3V IMPRESSION: Unremarkable examination of the right elbow. Electronically signed by: Willy Darnell MD 10/10/2025 02:33 PM EST
== END 2025-10-10 13:19 | disposition home or self-care (01) ==
LOC: HO.XRAY 13:18
PROVIDERS: PCP Internal Medicine; Visit Provider Internal Medicine
DX: M25.521 Pain in right elbow (principal); Z13.31 Encounter for screening for depression; Z13.39 Encounter for screening examination for other mental health and behavioral disorders
CPT/HCPCS: 73080; 96127; 99212

== ENCOUNTER 2025-10-10 13:18 | Outpatient (AMB) | payer MEDICARE, MEDICAID, SELFPAY ==
[2025-10-10 13:20] VITALS: BP 142/96; PULSE 85; O2SAT 99; BMI 20.7
--- NOTE | 2025-10-10 13:20 | A.OFFPC_ITS ---
Vital Signs 10/10/25 13:20 Height 5 ft 6 in Weight 128 lb 2 oz BMI 20.7 BP 142/96 H Blood Pressure Location Rt brachial Position Sitting Pulse 85 Pulse Source Pulse Oximeter Pulse Oximetry (%) 99 Oxygen Delivery Method Room Air Intake Visit Reasons: Elbow injury [employer] Examiner Required: No Accompanied by: Self / Same As Patient Allergies No Known Allergies (No Known Allergies*) Allergy (Verified 10/10/25 13:56) Medication List - Last Reconciled 10/10/25 by Jeremy Katz MD clonazepam 0.5 mg PO BEDTIME PRN ibuprofen 600 mg PO Q8H PRN 5 days morphine 15 mg PO Q8H PRN tamsulosin (Flomax) 0.4 mg PO DAILY Tobacco use date assessed: 10/10/25 Dental Screening Dental Screen Date: 10/10/25 Did you have a dental visit in the last 12 months?: No Did you have a dental problem in the last 6 months where you did not have access to dental care?: No Was dental information given to patient?: No HPI Elbow injury HPI Details - The patient is a 55 year old male pres enting with right elbow pain. - The patient reports hitting his elbow a few months ago, at the end of the summer. - The pain initially resolved for a ronaldo h or two, but then recurred and has worsened. - The pain is located on the lower part of his elbow and is described as an uncomfortable feeling rather than overt pain. - Symptoms are exacerbated by use, such as with a rey, or by attempting to lift objects, and feel worse at the end of the day. - The discomfort has not gone away compl etely and is now radiating to his fingers. - He is also experiencing a loss of metal buffer strength, noting difficulty opening a bottle. - He has not had prior X-rays of the elb ow. [facility] Medical History CVA (cerebral vascular accident) History of gastritis History of hepatitis C Irritable bowel syndrome (IBS) Anxiety Surgical History History of esophagogastroduodenoscopy (EGD) History of colonoscopy History of hernia repair History of extraction of renal calculus Family History Mother Diabetes Father No problems noted. Other Mental health disorder Social History Housing: Apartment Alcohol intake: former Patient Tobacco Use Status: Former Tobacco user e-Cigarette/Vaping Use: Never Used Second Hand Smoke Exposure: Yes Substance Use Type: Marijuana service: No Current occupational status: disabled Cognitive needs: No Hearing needs: No Vision needs: Yes (reading glasses) Questionnaire PHQ-9 Over the last 2 weeks, how often have you been bothered by any of the following problems? 1. Little interest or pleasure in doing things: not at all 2. Feeling down, depressed, or hopeless: not at all 3. Trouble falling or staying asleep, or sleeping too much: not at all 4. Feeling tired or having little energy: not at all 5. Poor appetite or overeating: more than half the days 6. Feeling bad about yourself - or that you are a failure or have let yourself or your family down: not at all 7. Trouble concentrating on things, such as reading the newspaper or watching television: not at all 8. Moving or speaking so slowly that other people could have noticed. Or the opposite - being so fidgety or restless that you have been moving around a lot more than usual: not at all 9. Thoughts that you would be better off or of hurting yourself in some way: not at all Total score: 2 Depression Screening Interpretation: Negative Depression Screening Done: Yes 54709 - PHQ-9 Billing: Yes Source: Developed by Drs. Willy Hickman, Lilo Herring, Joel Weaver and colleagues, with an educational todd from [employer]. Thrive Questionnaire Date Thrive assessed: 10/10/25 I am a: Patient What is your living situation today?: I have a steady place to live Within the past 12 months, did the food you bought not last and you didn't have the money to get more?: Sometimes True Within the past 12 months, did you worry whether your food would run out before you got money to buy more?: Sometimes True Do you have trouble paying for medicines?: No Do you have trouble getting transportation to medical appointments?: No Do you have trouble paying your heating and electricity bill?: No Do you have trouble taking care of your child, family member or friend?: No Do you have trouble with day-to-day activities such as bathing, preparing meals, shopping, managing finances, etc.?: No Are you currently unemployed and looking for a job?: No Are you interested in more education?: No Please select the resources that you would like help with: None Currently or been in a relationship where the following occur: I choose not to answer THRIVE Score: 2 AUDIT C Alcohol Use Questionnaire (AUDIT-C) 1. How often do you have a drink containing alcohol?: Never 3. How often do you have six or more drinks on one occasion?: Never Total Score: 0 Score Reviewed/Action Taken: Yes ELIAZAR-7 AMB Questionnaire ELIAZAR-7 Date ELIAZAR - 7 assessed: 10/10/25 Feeling nervous, anxious, or on edge: 0 = Not at all Not being able to stop or control worryin = Not at all Worrying too much about different things: 0 = Not at all Trouble relaxin = Not at all Being so restless that it is hard to sit still: 0 = Not at all Becoming easily annoyed or irritable: 0 = Not at all Feeling afraid as if something awful might happen: 0 = Not at all Total ELIAZAR-7 score (0-4 normal; 5-9 mild; 10-14 moderate; 15-21 severe): 0 Source: Developed by Drs. Willy Hickman, Lilo Herring, Joel Weaver and colleagues, with an educational todd from [employer]. Review of Systems Const Denies chills, Denies fatigue, Denies fever(s) and Denies headache(s) ENT Denies dysphagia, Denies dizziness, Denies otalgia, Denies headache(s), Denies neck pain and Denies sore throat Card Denies chest pain, Denies rapid heart rate, Denies irregular heart rhythm, Denies palpitations and Denies dyspnea Resp Denies chest congestion, Denies cough and Denies dyspnea GI Denies abdominal pain, Denies constipation, Denies dysphagia, Denies heartburn, Denies diarrhea, Denies nausea and Denies vomiting Denies hematuria, Denies difficulty urinating, Denies dysuria and Denies urinary frequency Musc Denies back pain, Reports arthralgias (right elbow) and Denies neck pain Skin/Breast Denies lesions and Denies rash Neuro Denies dizziness, Denies headache(s) and Denies paresthesias Endo Denies fatigue and Denies palpitations Physical exam (Primary Care) Vital Signs: Last Vital Signs Pulse 85 10/10/25 13:20 BP 142/96 H 10/10/25 13:20 Pulse Ox 99 10/10/25 13:20 Oxygen Delivery Method Room Air 10/10/25 13:20 BMI result Body Mass Index 20.7 Tobacco/Smoking Status: Tobacco use Status Tobacco use date assessed 10/10/25 10/10/25 13:27 Patient Tobacco Use Status Former Tobacco user 10/10/25 13:27 e-Cigarette/Vaping Use Never Used 10/10/25 13:27 PHQ-9: PHQ-9 Score PHQ-9: Total score 2 10/10/25 14:00 Depression Screening Interpretation: Negative Thrive Assessment: Date of Thrive Assessment Date Thrive assessed 10/10/25 10/10/25 13:27 Currently or been in a relationship where the following occur: I choose not to answer Const General: no acute distress and alert HENMT Ears: TM's normal bilaterally and EAC's normal Neck Neck: Yes supple and No lymphadenopathy Resp Auscultation: clear to auscultation bilaterally, no rales and no wheezes Cardio Rate: regular rate Rhythm: regular rhythm Heart sounds: no murmurs GI Palpation (GI): Soft to palpation and nontender Auscultation: normal bowel sounds Skin Rashes: no rashes Extrem General: Yes no clubbing, cyanosis or edema Right upper extremity: elbow/forearm Details: tenderness Location: of the olec ranon; no swelling Coding Level of Care Code Est Pt Level 3 (82724) Diagnoses Right elbow pain M25.521 Additional Codes PHQ-9 - 77175 - PHQ-9 Billing: Yes ([id number]) Assessment & Plan Assessment & Plan (1) Right elbow pain: Code(s): M25.521 - Pain in right elbow Category: Medical Plan: Will send patient for x-rays of the right elbow for further evaluation Plan Follow up as scheduled next month Orders: Orders XR elbow RT min 3V 10/10/25 M25.521 - Pain in right elbow
--- OUTSIDE RECORDS SUMMARY | 2025-10-10 18:52 | XMS_ITS | Patient Health Record ---
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 Yes Marijuana? 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 a lcohol use, former substance abuse with sobriety for approx. 10 years Nonsmoker 3 yrs, denies sig. alcohol use, former substance abuse with sobriety for approx. 10 years Nonsmoker 3 yrs, denies sig. alcohol use, former substance abuse with sobriety for approx. 10 years Nonsmoker since approx 2008; no alcohol Nonsmoker since approx 2008; no alcohol Former IVDA--abstinent since 2001 Nonsmoker since approx 2008; no alcohol Former IVDA--abstinent since 2001 Nonsmoker since approx 2008; no alcohol Former IVDA--abstinent since 2001 Problems Problem Type SNOMED Code ICD Code Onset Dates Problem Status W/U Status Risk Notes Problem Chronic hepatitis C (225748938) Chronic hepatitis C without hepatic coma (B18.2) Active confirmed Problem Elevated liver enzymes level (246186183) Elevated liver enzymes (R74.8) Active confirmed Problem Elevated alpha-fetoprot ein (R77.2) Active confirmed Plan Of Treatment Pending Test Test Name Order Date BUN 02/13/2013 BUN 08/31/2014 CREATININE 08/31/2014 CREATININE 02/13/2013 LIVER PROFILE 06/07/2016 LIVER PROFILE 01/01/2014 LIVER PROFILE 08/06/2014 LIVER PROFILE 01/03/2015 LIVER PROFILE 04/27/2015 LIVER PROFILE 09/06/2015 LIVER PROFILE 07/09/2016 CBC w DIFF 09/06/2015 CBC w DIFF 01/03/2015 CBC w DIFF 04/27/2015 CBC w DIFF 12/10/2014 CBC w DIFF 01/01/2014 CBC w DIFF 08/06/2014 CBC w DIFF 06/07/2016 PROTHROMBIN TIME (PT, INR) 08/06/2014 PROTHROMBIN TIME (PT, INR) 01/01/2014 PROTHROMBIN TIME (PT, INR) 06/07/2016 ALPHA-FETOPROTEIN,TUMOR MARKER 4 ALPHA-FETOPROTEIN,TUMOR MARKER 6 HEPATITIS C VIRAL LOAD 06/07/2016 HEPATITIS C VIRAL LOAD 01/03/2015 HEPATITIS C VIRAL LOAD 04/27/2015 HEPATITIS C VIRAL LOAD 09/06/2015 MRI ABD W&WO CONTRAST 02/13/2013 MRI ABD W&WO CONTRAST 08/31/2014 Insurance Providers Payer Name Payer Address Payer Phone Subscriber Number Group Number Insured Name Patient Relationship to Insured Coverage Start Date Coverage End Date MEDICARE OF [place] [address] [place] [address] [id number] Self - patient is the insured MEDICAID OF [facility] [address] [place] [address] [id number] AUREA SPENCE Self - patient is the [...]
== END 2025-10-10 14:01 | disposition home or self-care (01) ==
LOC: HO.HMCH 13:19
PROVIDERS: PCP Internal Medicine; Visit Provider Internal Medicine
DX: M25.521 Pain in right elbow (principal)

== ENCOUNTER → 2025-10-10 14:20 | Outpatient (BNV) | payer MEDICARE, MEDICAID, SELFPAY | PROVIDERS: PCP Internal Medicine; Visit Provider Radiology Diagnostic Radiology | DX: M25.521 Pain in right elbow (principal) | CPT/HCPCS: 73080 ==